=== PATIENT | male | born 1955 | race Caucasian/White ===

== ENCOUNTER 2020-02-07 10:23 | Outpatient (NON) | payer MEDICARE, OTHER, SELFPAY ==
[2020-02-07 21:25] LABS: SARS-CoV-2 RNA PCR Negative
== END 2020-02-07 10:24 ==
PROVIDERS: Visit Provider Registered Nurse
DX: Z20.828 Contact with and (suspected) exposure to other viral communicable diseases (principal)
CPT/HCPCS: 87635; C9803; U0003

== ENCOUNTER 2023-09-30 14:14 | Outpatient (CLI) | payer MEDICARE, OTHER, SELFPAY ==
[2023-09-30 14:32] LABS: Basophils Absolute Auto 0.1 K/mm3 (0.0-0.1); Basophils Percent Auto 0.7 % (0.2-1.2); Eosinophils Absolute Auto 0.5 K/mm3 (0-0.3); Eosinophils Percent Auto 6.8 % (0-4.4); Hematocrit 52.1 % (42.0-52.0); Hemoglobin 18.1 g/dL (14.0-18.0); Immature Granulocyte Absolute 0.01 K/mm3 (0.00-0.031); Immature Granulocyte Percent A 0.1 % (0-0.5); Lymphocytes Absolute Auto 1.65 K/mm3 (0.9-3.2); Lymphocytes Percent Auto 23.8 % (18.3-44.2); Mean Corpuscular HGB Conc 34.7 g/dl (32-36); Mean Corpuscular Hemoglobin 32.6 pg (26-34); Mean Corpuscular Volume 93.7 fl (80-100); Mean Platelet Volume 9.6 fl (7.4-10.4); Monocytes Absolute Auto 0.7 K/mm3 (0.1-0.6); Monocytes Percent Auto 10.2 % (2.6-8.5); Neutrophils Percent Auto 58.4 % (45.5-73.1); Platelet Count Result 163 k/mm3 (150-375); Red Blood Count 5.56 M/mm3 (4.6-6.20); Red Cell Distribution Width 12.4 % (11.5-14.5); White Blood Count 6.9 K/mm3 (4.5-10.0)
[2023-09-30 17:15] LABS: Alanine Aminotransferase 33 U/L (6-50); Albumin Level 4.9 g/dL (3.5-5.1); Alkaline Phosphatase 43 U/L (38-126); Anion Gap 12 mmol/L (4-12); Aspartate Amino Transferase 40 U/L (17-59); Blood Urea Nitrogen 24 mg/dL (9-20); Calcium 9.6 mg/dL (8.4-10.2); Carbon Dioxide 23 mmol/L (22-30); Chloride 104 mmol/L (98-107); Estimated Glomerular Filt Rate > 60; Glucose 156 mg/dL (65-110); Potassium 4.6 mmol/L (3.4-5.0); Sodium 139 mmol/L (137-145)
== END 2023-09-30 14:15 | disposition home or self-care (01) ==
LOC: ANHLAB 14:17
PROVIDERS: Nurse Practitioner Family; PCP Family Medicine; Visit Provider Internal Medicine Hematology & Oncology
DX: D75.1 Secondary polycythemia (principal)
CPT/HCPCS: 36415; 80053; 82668; 85025

== ENCOUNTER 2023-10-07 02:20 | Day surgery (SDC) | payer MEDICARE, OTHER, SELFPAY ==
[2023-09-24 10:50] VITALS: BMI 25.7
[2023-10-07 06:55] VITALS: BP 113/99; PULSE 69; RESP 20; TEMP 36.2; O2SAT 97
[2023-10-07] MEDS: LACTATED RINGERS 1,000 ML 150 ML IV CONT (07:06)
--- NOTE | 2023-10-07 07:50 | PM.IMHP ---
H&P: HPI History of Present Illness Date/Time: 10/07/23 07:50 Chief Complaint: screening for colorectal cancer Narrative: this is a 68-year-old man who presents for colonoscopy. Last colonoscopy was 5 or 6 years ago. He does not recall if polyps were removed. He denies any hematochezia or melena. He denies any family history of colon cancer. Review of Systems Review of Systems: All systems reviewed & are unremarkable except as noted in HPI and below Constitutional: Constitutional: Denies chills, Denies fever(s), Denies headache(s) and Denies weight loss Eyes: Eyes: Denies change in vision ENT: Denies dizziness, Denies headache(s), Denies neck mass and Denies throat swelling Cardiovascular: Cardiovascular: Denies chest pain, Denies lightheadedness and Denies dyspnea Respiratory: Respiratory: Denies cough, Denies dyspnea and Denies wheezing Gastrointestinal: Gastrointestinal: Denies abdominal pain, Denies change in bowel habits, Denies nausea and Denies vomiting Genitourinary: Genitourinary: Denies hematuria and Denies dysuria Musculoskeletal: Musculoskeletal: Reports as per HPI Integumentary/Breasts: Skin/Breast: Reports as per HPI Neurologic: Denies dizziness and Denies headache(s) Allergic/Immunologic: Allergic/Immunologic: Denies throat swelling and Denies wheezing PMFSH Past Medical History Medical History Asthma BMI 25.0-25.9,adult BMI 26.0-26.9,adult BMI 27.0-27.9,adult Skin cancer Surgical History Surgical History History of penile implant Family History Family History Father Sibling No problems noted. Mother No problems noted. Social History Social History Smoking packs per day: 1 Smoking cigarettes per day: 20.0 Years smoked: 20 Smoking pack-years: 20.00 Smoking status: Former smoker Tobacco type: cigarettes Second hand tobacco smoke exposure: Yes Alcohol intake: current Drinks per week: 12 Substance use: current Substance use type: opiates and painkillers Lack of Transportation: No Lack of Food: Never True Current Housing: I Have Housing Concerned About Future Housing: No Difficulty Paying Gas/Electric Bills: No Difficulty Paying for Meds: No Currently Unemployed: No Education: Associate Degree Difficulty w/ Childcare or Family Care: No Living arrangements: with family Occupation/Education: occupation 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 Gender identity (if verbalized by the patient): Male Spiritual care concerns: No Meds Home Medications and Allergies Home Medications Medication Instructions Recorded Confirmed Type hydrocortisone 2.5 % topical cream 1 applic RECTAL DAILY PRN 07/10/20 10/06/23 History with perineal applicator Hemorrhoids (Proctosol HC) isosorbide mononitrate 30 mg 30 mg PO DAILY #30 tabs 07/10/20 10/06/23 Rx tablet,extended release 24 hr rosuvastatin 40 mg tablet (Crestor) 40 mg PO DAILY #90 tabs 07/10/20 10/06/23 Rx tamsulosin 0.4 mg capsule (Flomax) 0.4 mg PO DAILY #30 caps 07/10/20 10/06/23 Rx metoprolol succinate 25 mg 25 mg PO DAILY 05/15/21 10/06/23 History tablet,extended release 24 hr triamcinolone acetonide 0.5 % 1 applic topical BID #15 grams 05/18/21 10/06/23 Rx topical cream aspirin 81 mg tablet,delayed 81 mg PO DAILY #90 tabs 01/15/22 10/06/23 Rx release (Adult Aspirin Regimen) docusate sodium 100 mg capsule 100 mg PO BID #180 caps 01/15/22 10/06/23 Rx hydrocodone 7.5 mg-acetaminophen 1 tablet PO BID PRN Pain 08/30/22 10/06/23 History 325 mg tablet ropinirole 1 mg tablet 1 mg PO QHS #90 tabs 01/07/23 10/06/23 Rx albuterol sulfate 90 mcg/actuation 1 puff inhalation Q4H PRN 03/10/23 10/06/23 Rx aerosol inhal
--- NOTE | 2023-10-07 07:54 | WPDANESEPPF ---
Anes - Initial Pre Proc Eval Procedure: Operation Date: 10/07/23 08:00 Proposed Procedures p Screening Colonoscopy - Marvin Santos DO Date/Time: 10/07/23 07:54 Surgeon: Marvin Santos DO Pre Op Diagnosis: Screening for malignant neoplasm of colon Patient Data Age: 68 Gender: M Height: 1.88 m Weight: 89.2 kg Last Vital Signs Temp 97.1 F L 10/07/23 06:55 Pulse 69 10/07/23 06:55 Resp 20 10/07/23 06:55 BP 113/99 H 10/07/23 06:55 Pulse Ox 97 10/07/23 06:55 O2 Del Method Room Air 10/07/23 06:55 Allergies Allergy/AdvReac Type Severity Reaction Status Date / Time No Known Allergies Allergy Verified 10/07/23 06:54 Home Medications Medication Instructions Recorded Confirmed Type hydrocortisone 2.5 % topical cream 1 applic RECTAL DAILY PRN 07/10/20 10/06/23 History with perineal applicator Hemorrhoids (Proctosol HC) isosorbide mononitrate 30 mg 30 mg PO DAILY #30 tabs 07/10/20 10/06/23 Rx tablet,extended release 24 hr rosuvastatin 40 mg tablet (Crestor) 40 mg PO DAILY #90 tabs 07/10/20 10/06/23 Rx tamsulosin 0.4 mg capsule (Flomax) 0.4 mg PO DAILY #30 caps 07/10/20 10/06/23 Rx metoprolol succinate 25 mg 25 mg PO DAILY 05/15/21 10/06/23 History tablet,extended release 24 hr triamcinolone acetonide 0.5 % 1 applic topical BID #15 grams 05/18/21 10/06/23 Rx topical cream aspirin 81 mg tablet,delayed 81 mg PO DAILY #90 tabs 01/15/22 10/06/23 Rx release (Adult Aspirin Regimen) docusate sodium 100 mg capsule 100 mg PO BID #180 caps 01/15/22 10/06/23 Rx hydrocodone 7.5 mg-acetaminophen 1 tablet PO BID PRN Pain 08/30/22 10/06/23 History 325 mg tablet ropinirole 1 mg tablet 1 mg PO QHS #90 tabs 01/07/23 10/06/23 Rx albuterol sulfate 90 mcg/actuation 1 puff inhalation Q4H PRN 03/10/23 10/06/23 Rx aerosol inhaler (ProAir HFA) shortness of breath or wheezing #8.5 grams felodipine 10 mg tablet,extended 10 mg PO DAILY #90 tabs 03/10/23 10/06/23 Rx release 24 hr gabapentin 600 mg tablet 1,200 mg PO TID #540 tabs 03/10/23 10/06/23 Rx potassium chloride 20 mEq 20 meq PO DAILY #90 tabs 03/10/23 10/06/23 Rx tablet,extended release ammonium lactate 12 % lotion 1 applic topical BID #225 grams 06/11/23 10/06/23 Rx empagliflozin 10 mg tablet 10 mg PO DAILY #90 tabs 06/11/23 10/06/23 Rx (Jardiance) lisinopril 5 mg tablet 5 mg PO DAILY #90 tabs 07/02/23 10/06/23 Rx triamterene 75 1 tablet PO DAILY #90 tabs 07/02/23 10/06/23 Rx mg-hydrochlorothiazide 50 mg tablet Patient hx anesthesia problems: none Family hx anesthesia problems: none Results Review: All pre-operative results and documents have been reviewed as part of the pre-operative evaluation. [facility] Past Medical History Medical History Asthma BMI 25.0-25.9,adult BMI 26.0-26.9,adult BMI 27.0-27.9,adult Skin cancer Surgical History Surgical History History of penile implant Family History Family History Father Sibling No problems noted. Mother No problems noted. Social History Social History Smoking packs per day: 1 Smoking cigarettes per day: 20.0 Years smoked: 20 Smoking pack-years: 20.00 Smoking status: Former smoker Tobacco type: cigarettes Second hand tobacco smoke exposure: Yes Alcohol intake: current Drinks per week: 12 Substance use: current Substance use type: opiates and painkillers Lack of Transportation: No Lack of Food: Never True Current Housing: I Have Housing Concerned About Future Housing: No Difficulty Paying Gas/Electric Bills: No Difficulty Paying for Meds: No Currently Unemployed: No Education: Associate Degree Difficulty w/ Childcare or Family Care: No Living arrangements: with fa
[2023-10-07 08:30] VITALS: BP 99/65; PULSE 61; RESP 12; O2SAT 96
[2023-10-07 08:45] VITALS: BP 109/80; PULSE 63; RESP 12; O2SAT 98
[2023-10-07 09:00] VITALS: BP 114/83; PULSE 65; RESP 12; O2SAT 99
== END 2023-10-07 09:07 | disposition home or self-care (01) ==
PROVIDERS: PCP Family Medicine; Visit Provider Surgery
PROC: 0DJD8ZZ Inspection of Lower Intestinal Tract, Via Natural or Artificial Opening Endoscopic (ICD-10-PCS; CPT 45378; principal; 2023-10-07 08:00)
DX: Z12.11 Encounter for screening for malignant neoplasm of colon (principal); D12.3 Benign neoplasm of transverse colon; D12.5 Benign neoplasm of sigmoid colon; K57.30 Diverticulosis of large intestine without perforation or abscess without bleeding; J45.909 Unspecified asthma, uncomplicated; Z79.51 Long term (current) use of inhaled steroids; Z79.82 Long term (current) use of aspirin; Z79.84 Long term (current) use of oral hypoglycemic drugs; Z87.891 Personal history of nicotine dependence
CPT/HCPCS: 45380; 88305; J2704; J7120

== ENCOUNTER 2024-04-06 12:24 | Outpatient (CLI) | payer MEDICARE, OTHER, SELFPAY ==
[2024-04-06 12:34] LABS: Basophils Percent Auto 0.3 % (0.2-1.2); Eosinophils Absolute Auto 0.3 K/mm3 (0-0.3); Hematocrit 50.3 % (42.0-52.0); Hemoglobin 17.4 g/dL (14.0-18.0); Immature Granulocyte Absolute 0.04 K/mm3 (0.00-0.031); Immature Granulocyte Percent A 0.5 % (0-0.5); Lymphocytes Absolute Auto 1.65 K/mm3 (0.9-3.2); Lymphocytes Percent Auto 19.2 % (18.3-44.2); Mean Corpuscular HGB Conc 34.6 g/dl (32-36); Mean Corpuscular Hemoglobin 32.8 pg (26-34); Mean Corpuscular Volume 94.7 fl (80-100); Mean Platelet Volume 9.3 fl (7.4-10.4); Monocytes Absolute Auto 0.8 K/mm3 (0.1-0.6); Monocytes Percent Auto 9.7 % (2.6-8.5); Neutrophils Absolute Auto 5.7 K/mm3 (1.3-6.7); Neutrophils Percent Auto 66.3 % (45.5-73.1); Platelet Count Result 186 k/mm3 (150-375); Red Blood Count 5.31 M/mm3 (4.6-6.20); Red Cell Distribution Width 12.3 % (11.5-14.5); White Blood Count 8.6 K/mm3 (4.5-10.0)
== END 2024-04-06 12:25 | disposition home or self-care (01) ==
LOC: ANHLAB 12:26
PROVIDERS: PCP Family Medicine; Visit Provider Internal Medicine Hematology & Oncology
DX: D75.1 Secondary polycythemia (principal)
CPT/HCPCS: 36415; 85025

== ENCOUNTER 2024-11-08 11:01 | Outpatient (CLI) | payer MEDICARE, OTHER, SELFPAY ==
--- OUTSIDE RECORDS SUMMARY | 2024-11-08 11:09 | XMS_ITS | Referral Summary ---
Author Organization [facility] Address [address] [place] [address] Care Team Providers Care Telephone Lines Repairer Name Role Phone David Mahoney MD Primary Care Provider Encounters Date Type Department Care Team Description 11/04/2024 Orders Only [facility] [address] [place] [address] Manuel Waite MD Benign prostatic hyperplasia with nocturia (Primary Dx) 11/04/2024 Telephone [facility] [address] [place] [phone] Prerna Quezada 09/07/2024 2:18 PM CDT - 09/07/2024 11:59 PM CDT Hospital Encounter [facility] at the [facility] [address] [place] [phone] Juan Luis Abel MD Lumbar radiculopathy (Primary Dx) Discharge Disposition: Discharge to home or self care 08/16/2024 11:58 AM CDT - 08/16/2024 11:59 PM CDT Hospital Encounter [facility] at the [facility] [address] [place] [phone] Bon Domingo NP Chronic bilateral low back pain with bilateral sciatica (Primary Dx); Status post insertion of spinal cord stimulator; Chronic use of opiate for therapeutic purpose Discharge Disposition: Discharge to home or self care from Last 3 Months Allergies No known active allergies Medications felodipine (PLENDIL) 10 mg 24 hr tabletIndicatio ns:hypertension Take 1 tablet (10 mg total) by mouth nightly 7 Active lisinopril (PRINIVIL,ZESTR IL) 5 mg tabletIndicatio ns:hypertension Take 1 tablet (5 mg total) by mouth every morning Active rOPINIRole (REQUIP) 1 mg tabletIndicatio ns:Restless Legs Syndrome Take 1 tablet (1 mg total) by mouth nightly Active aspirin 81 mg tabletIndicatio ns:prevention of thrombosis Take 1 tablet (81 mg total) by mouth every morning 7 Active albuterol HFA (PROVENTIL HFA,VENTOLIN HFA,PROAIR HFA) 90 mcg/actuation inhalerIndicati ons:Bronchospas m Prevention Inhale 2 puffs every 4 (four) hours as needed for wheezing or shortness of breath Active potassium chloride ER (KLOR-CON) 20 mEq CR tabletIndicatio ns:supplement Take 1 tablet (20 mEq total) by mouth every morning Active triamterene-hyd roCHLOROthiazid e (MAXZIDE,DYAZID E) 75-50 mg per tabletIndicatio ns:hypertension Take 1 tablet by mouth every morning 9 Active docusate sodium (COLACE) 100 mg capsuleIndicati ons:constipatio n Take 1 capsule (100 mg total) by mouth 2 (two) times a day 0 Active ammonium lactate (LAC-HYDRIN) 12 % lotionIndicatio ns:Dry Skin Apply topically daily as needed for dry skin or irritation 0 Active hydrocortisone (ANUSOL-HC) 2.5 % rectal cream Insert into the rectum 0 Active naloxone (NARCAN) 4 mg/actuation spray,non-aeros olIndications:O piate-Induced Respiratory Depression Administer 1 spray into affected nostril(s) as needed for opioid reversal May repeat every 2 to 3 minutes PRN. 1 each 2 Active triamcinolone (KENALOG) 0.5 % cream Apply topically 3 Active empagliflozin (Jardiance) 10 mg tabletIndicatio ns:type 2 diabetes mellitus Take 1 tablet (10 mg total) by mouth every morning 3 Active icosapent ethyL (VASCEPA) 1 gram capsule Take 2 capsules (2 g total) by mouth 2 (two) times a day 360 capsule 3 4 12/21/19 25 Active metoprolol XL (TOPROL-XL) 25 mg extended release tablet Take 1 tablet (25 mg total) by mouth daily 90 tablet 3 4 Active rosuvastatin (CRESTOR) 40 mg tablet Take 1 tablet (40 mg total) by mouth nightly 90 tablet 3 5 Active isosorbide mononitrate ER (IMDUR) 30 mg 24 hr tablet Take 1 tablet (30 mg total) by mouth daily 90 tablet 3 5 Active omega-3 fatty acids-fish oil 300-1,000 mg capsuleIndicati ons:hypertrigly ceridemia Take 1 capsule (1 g total) by mouth 2 (two) times a day Active multivitamin tabletIndicatio ns:Vitamin Deficiency Prevention Take 1 tablet by mouth every morning Active tamsulosin (FLOMAX) 0.4 mg extended release capsule Take 1 capsule (0.4 mg total) by mouth Active gabapentin (NEURONTIN) 600 mg tablet Take 1.5 tablets (900 mg total) by mouth 2 (two) times a day 270 tablet 3 5 Active HYDROcodone-demond taminophen (NORCO) 7.5-325 mg per tabletIndicatio ns:Pain Take 1 tablet by mouth every 8 (eight) hours as needed for pain 90 tablet 5 Active HYDROcodone-demond taminophen (NORCO) 7.5-325 mg per tabletIndicatio ns:Pain Take 1 tablet by mouth every 8 (eight) hours as needed for pain 90 tablet 5 10/22/19 25 Discontin ued(Reord er) Active Problems Problem Noted Date Diagnosed Date Allergic rhinitis 11/11/2023 Ankle pain 11/11/2023 Astigmatism 11/11/2023 Cerumen impaction 11/11/2023 Cervicalgia 11/11/2023 Corneal guttata 11/11/2023 Heart block 11/11/2023 Diabetes mellitus 11/11/2023 Impaired fasting glucose 11/11/2023 Male erectile disorder 11/11/2023 Overview (11/11/2023): formulary request for approval for levitra 10mg submitted Mass of skin 11/11/2023 Neoplasm of uncertain behavior of skin Nicotine dependence 11/11/2023 Overview (11/11/2023): Patient was instructed to stop using tobacco abuse Patient was counseled on the effects of Tobacco use. Recommendation of self referral to [facility] was discussed with patient. recommend patient call Nuclear senile cataract 11/11/2023 Other seborrheic keratosis 11/11/2023 Phobia 11/11/2023 Prediabetes 11/11/2023 Overview (11/11/2023): recheck fasting in 3-6 months Presbyopia 11/11/2023 Sensorineural hearing loss 11/11/2023 Overview (11/11/2023): TMs not obscured yet by wax, patient reports he gets ears cleaned out here annually Subcutaneous nodule 11/11/2023 Undiagnosed cardiac murmurs 11/11/2023 Xerosis cutis 11/11/2023 Coronary artery disease invo lving tanana coronary artery of tanana heart without angina pectoris 03/24/2023 Aneurysm of ascending aorta without rupture 02/27 Peripheral arterial disease 03/24/2023 Right bundle branch block 03/24/2023 Essential hypertension 03/24/2023 Left ventricular hypertrophy 03/24/2023 Mixed hyperlipidemia 03/24/2023 Benign prostatic hyperplasia with nocturia 09/05 Assessment & Plan (09/05/2022 2:30 PM CDT): -Last 3-4 months he has noticed having to double void and increased nocturia. Double voiding typically only happens at night and only voids a small amount. Daytime symptoms are okay and does not have this issue. -Stream is pretty good, no hesitancy, no straining, no urgency. -He does report he drinks fluids up until bedtime and has 4-5 beers a night. -Explained to patient alcohol can have diuretic effect and likely contributing to his nocturia and irritative to bladder causing needing to double void. PLAN: -Avoid all fluids 2-3 hours prior to bed. -Advised abstaining from alcohol all together if possible. Or reduction in amount of beer and drinking them earlier in the evening. -Continue tamsulosin. -Follow up in 1 year or sooner if issues arise. Prostate cancer screening 09/05/2022 Assessment & Plan (09/05/2022 2:31 PM CDT): -Due for PSA. Order placed. Chronic use of opiate for therapeutic purpose Other hemorrhoids 02/02/2020 Hypokalemia 08/03/2019 Restless leg syndrome, controlled 08/03/2019 Chronic bilateral low back pain with bilateral s ciatica 11/16/2017 Myalgia 11/16/2017 Other chronic pain 11/16/2017 Slowing of urinary stream 10/22/2016 Spinal stenosis of lumbar region 03/20/2015 Degeneration of intervertebral disc of lumbosacr al region 01/21/2013 Arthropathy of lumbar facet joint 10/13/2012 Sciatica 10/13/2012 Induratio penis plastica 08/19/2007 Overview (11/11/2023): new onset Peyronie's symptoms, refer to urology Social History Tobacco Use Types Packs/Day Years Used Date Smoking Tobacco: Former Cigarettes 2017 Smokeless Tobacco: Never Tobacco Cessation:Counseling Given: Not Answered Alcohol Use Standard Drinks/Week Comments Yes 2 (1 standard drink = 0.6 oz pur e alcohol) every other day AUDIT-C Answer Date Recorded Q1: How often do you have a drink containing alcohol? 4 or more times a week 09/07/2024 Q2: How many drinks containi ng alcohol do you have on a typical day when you are drinking? 1 or 2 Q3: How often do you have si x or more drinks on one occasion? Never 09/07/2024 Hunger Vital Sign Answer Date Recorded Within the past 12 months, y ou worried that your food would run out before you got the money to buy more. Never true 08/27/19 23 Within the past 12 months, t he food you bought just didn't last and you didn't have money to get more. Never true 08/26/2022 Personal Safety Answer Date Recorded Have you ever been in or are you currently in a harmful physical or emotional relationship or is someone making you feel afraid or unsafe? Denies 08/06/2024 Sex and Gender Information Value Date Recorded Sex Assigned at Not on file Legal Sex Male 11:34 PM COSTUMER Gender Identity Not on file Sexual Orientation Not on file Last Filed Vital Signs Vital Sign Reading Time Taken Comments Blood Pressure 124/64 09/07/2024 2:49 PM CDT Pulse 82 09/07/2024 2:49 PM CDT Temperature 36.6 C (97.8 F) 09/07/2024 2:49 PM CDT Respiratory Rate 16 09/07/2024 2:49 PM CDT Oxygen Saturation 93% 09/07/2024 2:49 PM CDT Inhaled Oxygen Concentration - - Weight 86.6 kg (191 lb) 09/07/2024 2:49 PM CDT Height 188 cm (6' 2) 09/07/2024 2:49 PM CDT Body Mass Index 24.52 09/07/2024 2:49 PM CDT Plan of Treatment Not on file Goals Goal Patient Goal Type Associated Problems Recent Progress Patient-Stated? Author CCM Chronic Pain Care Plan Chronic Care Management Worsening( 2:54 PM CDT) No Yamilka Singh Note: Problem: Chronic Pain Goals: 1. Minimize further functional decline 2. Maximize quality of life 3. Control pain Strategies: - Activity/exercise program recommendation - Conservative stepwise pain medicine strategy with multi-disciplinary approach - Recommend healthy lifestyle strategies and compensatory methods as needed Medical Devices Implanted Type Area Software Test Technician Device Identifier Shelf Expiration Date Model / Serial / Lot Spinal Cord Stimulator Right: Buttocks Medtronic Penile Penis [employer]onic [employer] Generator Pulse Inceptiv Sys Stm Electrcl Analges Implant [id number] - [id number] - [id number] Implanted:Qty: 1 on 08/06/2024 by Juan Luis Abel MD at [facility] N/A: Back Med[employer] Inc 05/11/2025 [id number] / [id number] / Procedures Procedure Name Priority Date/Time Associated Diagnosis Comments COMPREHENSIVE METABOLIC PANEL Routine 06/29/2024 7:45 AM COSTUMER LIPID PANEL Routine 06/29/2024 7:45 AM COSTUMER PSA DIAGNOSTIC Routine 11/06/2023 1:17 PM CDT Benign prostatic hyperplasia with nocturia Prostate cancer screening from Last 3 Months or Most Recently Relevant to Health Maintenance Results * (ABNORMAL) Lipid panel (06/29/2024 7:45 AM COSTUMER) Cholesterol 138 100 - 199 mg/dL [facility] - 01 Triglycerides 286(H) 0 - 149 mg/dL [facility] - 01 HDL Cholesterol 46 >39 mg/dL [facility] - 01 VLDL 44(H) 5 - 40 mg/dL [facility] - 01 LDL, calculated 48 0 - 99 mg/dL [facility] - 01 06/29/2024 7:45 AM COSTUMER 06/29/2024 Narrative [facility] - 06/30/2024 7:37 AM COSTUMER Performed at: 01 - [address] [id number] Stretcher Leveler Operator: Zuhair Barlow PhD, Phone: [phone] us Mario Kowalski MD LAB BLOOD ORDERABLES Final Result [facility] - 01 * (ABNORMAL) Comprehensive metabolic panel (06/29/2024 7:45 AM COSTUMER) Glucose 104(H) 70 - 99 mg/dL [facility] - 01 BUN 19 8 - 27 mg/dL [facility] - 01 Creatinine, Serum 0.98 0.76 - 1.27 mg/dL [facility] - 01 eGFR 83 >59 mL/min/1.7 3 [facility] - 01 BUN/creat ratio 19 10 - 24 [facility] - 01 Sodium 142 134 - 144 mmol/L [facility] - 01 Potassium, sr 3.7 3.5 - 5.2 mmol/L [facility] - 01 Chloride 101 96 - 106 mmol/L [facility] - 01 CO2 23 20 - 29 mmol/L [facility] - 01 Calcium 9.6 8.6 - 10.2 mg/dL [facility] - 01 Protein, sr 6.9 6.0 - 8.5 g/dL [facility] - 01 Albumin 4.5 3.9 - 4.9 g/dL [facility] - 01 Globulin, Total 2.4 1.5 - 4.5 g/dL [facility] - 01 Bilirubin, Total 0.7 0.0 - 1.2 mg/dL [facility] - 01 Alk phos 65 44 - 121 IU/L [facility] - 01 AST 21 0 - 40 IU/L [facility] - 01 ALT 28 0 - 44 IU/L [facility] - 01 06/29/2024 7:45 AM COSTUMER 06/29/2024 Narrative [facility] - 06/30/2024 7:37 AM COSTUMER Performed at: - [address] [id number] Stretcher Leveler Operator: Zuhair Barlow PhD, Phone: [phone] us Mario Kowalski MD LAB BLOOD ORDERABLES Final Result [facility] * PSA diagnostic (11/06/2023 1:17 PM CDT) PSA-Total 0.93 <=5.40 ng/mL Comment: Interpretive Data AGE SEX REFERENCE INTERVAL 0 minutes-150 years Female None 0 minutes-49 years Male None 50-59 years Male 0-3.90 60-69 years Male 0-5.40 70-79 years Male 0-6.20 80-150 years Male 0-6.20 The Daniel PSA Total assay procedure was used. Results from different manufacturers or methods may not be comparable. Serial testing should be performed using the same method. Current interpretive data last revised 21. Testing performed by: [facility], [address] [place] [address]., [id number] Blood 11/06/2023 1:17 PM CDT 11/06/2023 1:50 PM CDT us Manuel Waite MD LAB BLOOD ORDERABLES Final Resul t [facility] [id number] [facility] [place] [address] from Last 3 Months or Most Recently Relevant to Health Maintenance Insurance MEDICARE [facility] MEDICARE FOR LIFE MEDICARE [facility] Address: [address] [address] [place] [address] FOR LIFE Advance Directives For more information, please contact: [phone] Documents on File Type Date Recorded 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
--- OUTSIDE RECORDS SUMMARY | 2024-11-08 11:09 | XMS_ITS | Clinical Summary ---
Author Organization [facility] Address [address] [place] [address] Care Team Providers Care Organizational Consultant Name Role Phone David Mahoney MD Primary Care Provider + [phone] Allergies No known active allergies Medications felodipine [...] Tobacco use. Recommendation of self referral to [facility] was discussed with patient. recommend patient call [...] cutis 11/11/2023 Coronary artery disease invo lving pechanga coronary artery of pechanga heart without angina pectoris 03/24/2023 Aneurysm of [...] new onset Peyronie's symptoms, refer to urology Encounters Date Type Department Care Team Description 11/04/2024 Orders Only [facility] Surgery [address] [place] [address] Manuel Waite MD Benign prostatic hyperplasia with nocturia (Primary Dx) 11/04/2024 Telephone [facility] Surgery [address] [place] [address] Prerna Quezada 09/07/2024 2:18 PM CDT - 09/07/2024 11:59 PM CDT Hospital Encounter [facility] [address] [place] [address] Juan Luis Abel MD Lumbar radiculopathy (Primary Dx) Discharge Disposition: Discharge to home or self care 08/16/2024 11:58 AM CDT - 08/16/2024 11:59 PM CDT Hospital Encounter [facility] [place] [address] Bon Domingo NP Chronic bilateral low back pain with bilateral sciatica (Primary Dx); Status post insertion of spinal cord stimulator; Chronic use of opiate for therapeutic purpose Discharge Disposition: Discharge to home or self care from Last 3 Months Surgical History Surgery Date Site/Laterality Comments EPIDURAL INJECTION LUMBOSACRAL 07/21/2013 N/A [place] NJX AA&/STRD TFRML EPI LUMBAR/SACRAL 1 LEVEL Corticosteroid Inj Transforaminal Approach Lumbar W/ Fluoroscopic Guidance - (Added by TW Conv) NECK SURGERY PENILE PROSTHESIS IMPLANT CATARACT EXTRACTION 04/28/2020 - 04/27/2021 Bilateral COLONOSCOPY Medical History Medical History Date Comments Chronic pain Hypertension Low back pain Hyperlipidemia Coronary artery disease PAD (peripheral artery disease) Aortic aneurysm Sleep apnea Asthma Family History Medical History Relation Name Comments Anesthesia problems Neg Hx Social History Tobacco Use Types Packs/Day Years [...] on file 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 Gender Identity Not on file Sexual Orientation Not on file Obstetrics History Last Filed Vital Signs Vital Sign Reading [...] 09/07/2024 2:49 PM CDT Plan of Treatment Health Maintenance Due Date Last Done Comments Albumin Creatinine Ratio, Urine 1954 Colon Cancer Screening-Colonoscopy 1954 Depression Screening 1954 Hemoglobin A1C 1954 Hepatitis C Screening 1954 Dilated Eye Exam 1954 Foot Exam 1954 Hepatitis B Screening 1972 Lung Cancer Screening 2004 Abdominal Aortic Aneurysm (A AA) Screen 08/25/2019 Well Visit 65+ 08/25/2019 Pneumococcal vaccine 65+ (2 of 2 - PCV) 09/06/2020 09/07/2019 Covid-19 Vaccine (7 - 4-2 5 season) 2024 06/28/2024, 12/28/2023, 07/28/2021, Additional history exists Influenza Vaccine (#1) 2024 , 01/09/2023, 12/16/2020, Additional history exists Lipid Panel 06/29/2025 06/29/2024, 11/26, 02/10/2020, Additional history exists eGFR 06/29/2025 06/29/2024, 12/08/2023 Fall Risk Assessment 08/06/2025 08/06/2024 DTaP/Tdap/Td Vaccine (3 - Td or Tdap) 01/13/2033 01/13/2023, 12/29/2012, 09/14/2004 Zoster Vaccine Completed 11/09/2018, 07/27, 12/23/2013 Prostate Cancer Screening-PSA Discontinued , 09/05/2022, 09/04/2021, Additional history exists Goals Goal Patient Goal Type Associated Problems Recent Progress Patient-Stated? Author CCM Chronic Pain Care Plan Chronic Care Management Worsening( 2:54 PM CDT) Yamilka Kelley Note: Problem: Chronic Pain Goals: 1. Minimize further functional decline 2. Maximize quality of life 3. Control pain Strategies: - Activity/exercise program recommendation - Conservative stepwise pain medicine strategy with multi-disciplinary approach - Recommend healthy lifestyle strategies and compensatory methods as needed Medical Devices Implanted Type Area Nurse Orthopedic Device Identifier Shelf Expiration Date Model / Serial / Lot Spinal Cord Stimulator Right: Buttocks Medtronic Penile Penis [employer] Generator Pulse Inceptiv Sys Stm Electrcl Analges Implant [id number] - [id number] - [id number] Implanted:Qty: 1 on 08/06/2024 by Juan Luis Abel MD at [facility] N/A: Back [employer] 05/11/2025 [id number] / [id number] / Procedures Procedure Name Priority Date/Time Associated Diagnosis Comments COMPREHENSIVE METABOLIC PANEL Routine 06/29/2024 7:45 AM [employer]DING PL[employer]NER LIPID PANEL Routine 06/29/2024 7:45 AM WEDDING PL[employer]NER PSA DIAGNOSTIC Routine 11/06/2023 1:17 PM CDT Benign prostatic hyperplasia with nocturia Prostate cancer screening from Last 3 Months or Most Recently Relevant to Health Maintenance Results * (ABNORMAL) Lipid panel (06/29/2024 7:45 AM WEDDING PLANNER) Cholesterol 138 100 - 199 mg/dL [facility] - 01 Triglycerides 286(H) 0 - 149 mg/dL [facility] - 01 HDL Cholesterol 46 >39 mg/dL [facility] - 01 VLDL 44(H) 5 - 40 mg/dL [facility] - 01 LDL, calculated 48 0 - 99 mg/dL [facility] - 01 06/29/2024 7:45 AM WEDDING PLANNER 06/29/2024 Narrative [facility] - 06/30/2024 7:37 AM WEDDING PLANNER Performed at: - [facility] [id number] Chief Order Dispatcher: Zuhair Barlow PhD, Phone: [phone] Mario Kowalski MD LAB BLOOD ORDERABLES Final Result [facility] - 01 * (ABNORMAL) Comprehensive metabolic panel (06/29/2024 7:45 AM WEDDING PL[employer]NER) Glucose 104(H) 70 - 99 mg/dL [facility] [...] IU/L [facility] - 01 06/29/2024 7:45 AM WEDDING PLANNER 06/29/2024 Narrative [facility] - 06/30/2024 7:37 AM WEDDING PL[employer]NER Performed at: [facility] [id number] Chief Order Dispatcher: Zuhair Barlow PhD, Phone: [phone] us Mario Kowalski MD LAB BLOOD ORDERABLES Final Result Performing Organization Address [facility] Co de Phone Number [facility] - * PSA diagnostic (11/06/2023 1:17 PM CDT) [...] Testing performed by: [facility], [address] [place] [address]., [id number] Blood 11/06/2023 1:17 PM CDT 11/06/2023 1:50 PM CDT us Manuel Waite MD LAB BLOOD ORDERABLES Final Resul t Performing Organization Address City/[facility]/ZIP Co de Phone Number [facility] [address] [facility] [place] [address] from Last 3 Months or Most Recently Relevant to Health Maintenance Insurance MEDICARE [facility] MEDICARE [employer] [facility] [address] MEDICARE FOR LIFE Advance Directives For more information, please contact: [phone] Documents on File Type Date Recorded Patient Child And Family Therapist Expl anation ADVANCE DIRECTIVE 05/08/2018 10:29 AM Care Teams Organizational Consultant Relationship Specialty Start Date End Date David Mahoney MD PCP - General Family Medicine 09/04/20
--- OUTSIDE RECORDS SUMMARY | 2024-11-08 11:09 | XMS_ITS | Encounter Summary ---
Author Organization [facility] Address [address] [place] [address] Care Team Providers Care Veneer Matcher Name Role Phone Stefano Turner MD Primary Care Provider [phone] Preeti Gill Primary Care Provider + David Mahoney MD Primary Care Provider [phone] Encounter Details Date Type Department Care Team (Late st Contact Info) Description 10/27/2019 Telephone 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 Author ELLI Chronic Pain Care Plan Chronic Care Management Worsening( 2:54 PM CDT) No Yamilka Singh Note: Problem: Chronic Pain Goals: 1. Minimize further functional decline 2. Maximize quality of life 3. Control pain Strategies: - Activity/exercise program recommendation - Conservative stepwise pain medicine strategy with multi-disciplinary approach - Recommend healthy lifestyle strategies and compensatory methods as needed documented as of this encounter Visit Diagnoses Not on filedocumented in this encounter Care Teams Veneer Matcher Relationship Specialty Start Date End Date Stefano Turner MD PCP - General Internal Medicine 01/05/18 12/07/19 Preeti Gill PA [address] [place] [id number] PCP - General 12/08/19 09/03/20 David Mahoney MD [address] [place] [id number] PCP - General Family Medicine 09/04/20 documented as of this encounter
--- OUTSIDE RECORDS SUMMARY | 2024-11-08 11:10 | XMS_ITS | Encounter Summary ---
Author Organization [facility] Healthcare Address [address] [place] [address] Care Team Providers Care Real Estate Operations Manager Name Role Phone David Mahoney MD Primary Care Provider Encounter Details Date Type Department Care Team (Late st Contact Info) Description 08/21/2021 Telephone [facility] [place] [facility] [address] [facility] [address] [place] [address] Juan Luis Abel MD [address] [place] [address] Social History Tobacco Use Types Packs/Day Years Used Date Smoking Tobacco: Former Smokeless Tobacco: Never Alcohol Use Standard Drinks/Week Comments Yes 2 (1 standard drink = 0.6 oz pur e alcohol) every other day AUDIT-C Answer Date Recorded Q1: How often do you have a drink containing alc ohol? Never 08/22/2021 Q2: How many drinks containi ng alcohol do you have on a typical day when you are drinking? 3 or 4 08/22/2021 Q3: How often do you have six or more drinks on one occasion? 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
--- OUTSIDE RECORDS SUMMARY | 2024-11-08 11:10 | XMS_ITS | Continuity of Care Document ---
Author Name [facility] Organization [facility] Care Team Providers Care Public Health Doctor Name Role Phone [facility] Unavailable Unavailable Problems Combined list of problems from 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 It does not include entries that were removed or entered in error. 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 DoD Outpatient Physician Consultation Active Condition DoD lump in / on the skin Active Condition DoD Preventive Medicine Estab Patient Checkup Adult 40-64 Inactive Condition DoD CATARACT SENILE NUCLEAR Active Condition DoD DIABETES MELLITUS Active Condition DoD HEART BLOCK Active Condition DoD ORTHOSTATIC HYPOTENSION Inactive Condition DoD Patient Education - Dietary Active Condition DoD PRESBYOPIA Active Condition DoD ASTIGMATISM Active Condition DoD REFRACTIVE ERROR - MYOPIA Active Condition DoD ALLERGIC RHINITIS Active Condition DoD Nodules - Subcutaneous Active Condition DoD LUMBAGO Active Condition DoD HYPOKALEMIA Active Condition DoD IMPAIRED FASTING GLUCOSE Active Condition DoD XEROSIS CUTIS Active Condition DoD RENAL DISORDERS Inactive Condition DoD Vaccines Prophylactic Need Against Influenza Inactive Condition DoD visit for: screening exam cardiovascular disorders Active Condition DoD NICOTINE DEPENDENCE Active Condition Patient was instructed to stop using tobacco abusePatient was counseled on the effects of Tobacco use. Recommendation of self referral to [facility] was discussed with patient.recommend patient call DoD CORONARY ARTERY DISEASE Active Condition pateint with ek g consistant with old infart will repeat ekg and labs patient sent to cardiology for initial consultation. 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 of Visits: 12 Referral Authorized Until:22 Feb 2008 Reason for Consult: Priority: ROUTINE Pain Management Consult: 52 y/o male with hx of lumbago with degenerative disc disease. Pt is being followed by Dr. David SIU [id number] @ [facility], [place] [phone] [address] [place] [address] . Pt has a f/u appt on Mar 05 @ 1100. Please authorize for contunuity of care for one year x 12 visits. Thanks. Provisional Diagnosis: HCDP: 117 - PRIME FAMILY COVER Lumbago w/degen disc disease Reviewed Date/Time: 24 Dec 2007@1301 Appoint Status: DEFER TO NETWORK Appointment Review Comment: Reviewer: PURVI HAY cap/ref//cont of care/ DoD HYPERLIPIDEMIA Active Condition Cardi ac Risk Factors =Htn, Age, Tob, LDL GOAL less than 100, HDL GOAL more than 40TG GOAL less 150 \patient to f/u after labs DoD HYPERGLYCEMIA Active Condition border line high fasting glucose, recheck in 4 weeks, also get glycohemoglobin DoD visit for: administrative purpose Inactive Condition DoD HYPERTENSION (SYSTEMIC) Active Condition Patient advised to complete 7-day BP check at home/work and return if greater than 140/90 on 2 or more readings.If becomes lightheaded with position changes, patient advised to monitor BP and return to clinic with readings.If experience chest pain report to ER immediately.Sho ruelas was given instruction on how to properly test for blood pressure control and agreed to f/u as needed. DoD visit for: issue repeat prescription for medication Inactive Condition [facility] Laboratory Studies Inactive Condition Do D visit for: issue repeat prescription Inactive Condition DoD visit for: laboratory Inactive Condition DoD lightheadedness Inactive Condition pt t o monitor BP during episodes DoD Vaccines Prophylactic Need Against Td Inactive Condition DoD Laboratory Studies Inactive Condition Labs order ed DoD Medications Combined list of outpatient medications from 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Medications provided include 1) outpatient medications from the last 15 months, and 2) patient-reported medications. Medication Details Route Status Patient Instructions Prescription Expires Prescription Number Last Dispense Date Ordering Provider Order Date Order Qty Source albuterol 90 mcg inhaler [8.5g] See Instruct ions, # 8.5 g, 2 total refill(s ), Hard Stop Complet ed 03/09/2024 3 2023 8.5 Ambulat ory Pharmac y albuterol 90 mcg inhaler [8.5g] See Instruct ions, # 8.5 g, 2 total refill(s ), Soft Stop Ordered 5 2024 8.5 Ambulat ory Pharmac y ammonium lactate 12% lotion [225g] See Instruct ions, # 225 g, 2 total refill(s ), Hard Stop Complet ed 06/10/2024 4 2024 225.0 Ambulat ory Pharmac y empaglifloz in 10 mg tablet = 1 tab(s), Oral, Daily, # 90 EA, 3 total refill(s ), Hard Stop Oral (given by mouth) Ordered 04/26/2025 5 2024 90.0 Ambulat ory Pharmac y felodipine ER 10 mg/24 hour tablet 10 mg, Oral, Daily, # 90 EA, 2 total refill(s ), Hard Stop Oral (given by mouth) Discont inued 07/06/2024 4 2024 90.0 Ambulat ory Pharmac y felodipine ER 10 mg/24 hour tablet 10 mg, Oral, Daily, # 90 EA, 2 total refill(s ), Hard Stop Oral (given by mouth) Discont inued 11/21/2023 4 2023 90.0 Ambulat ory Pharmac y felodipine ER 10 mg/24 hour tablet See Instruct ions, # 90 EA, 1 total refill(s ), Acute Complet ed 06/06/2023 3 2023 90.0 Ambulat ory Pharmac y felodipine ER 10 mg/24 hour tablet = 1 tab(s), Oral, Daily, # 90 EA, 2 total refill(s ), Soft Stop Oral (given by mouth) Ordered 5 2024 90.0 Ambulat ory Pharmac y FLOMAX (BRAND) 0.4 MG ORAL CAP May cause drowsine ss.Be careful if taking OTCs.Michael e or use exactly as directed .Swallow whole. 09/28/2024 [id number] 4 2023 90 [employer] Humberto TRONCOSO ([facility] gabapentin 600 mg oral tablet TAKE ONE TABLET TWICE DAILY, # 180 EA, 1 total refill(s ), Acute Discont inued 07/01/2023 3 2023 180.0 Ambulat ory Pharmac y gabapentin 600 mg tablet See Instruct ions, # 270 EA, 3 total refill(s ), Soft Stop Ordered 5 2024 270.0 Ambulat ory Pharmac y gabapentin 600 mg tablet See Instruct ions, # 270 EA, 0 total refill(s ), Hard Stop Complet ed 06/30/2024 4 2024 270.0 Ambulat ory Pharmac y gabapentin 600 mg tablet See Instruct ions, # 270 EA, 3 total refill(s ), Hard Stop Discont inued 09/13/2024 5 2024 270.0 Ambulat ory Pharmac y gabapentin 600 mg tablet See Instruct ions, 0, # 270 EA, 0 total refill(s ), Hard Stop Discont inued 07/01/2023 3 2023 270.0 Ambulat ory Pharmac y hydrochloro thiazide-tr iamterene 50 mg-75 mg tablet = 1 tab(s), Oral, Daily, # 90 EA, 2 total refill(s ), Hard Stop Oral (given by mouth) Discont inued 02/10/2024 4 2023 90.0 Ambulat ory Pharmac y hydrochloro thiazide-tr iamterene 50 mg-75 mg tablet = 1 tab(s), Oral, Daily, # 90 EA, 2 total refill(s ), Hard Stop Oral (given by mouth) Discont inued 10/01/2024 5 2024 90.0 Ambulat ory Pharmac y hydrochloro thiazide-tr iamterene 50 mg-75 mg tablet See Instruct ions, # 90 EA, 2 total refill(s ), Hard Stop Complet ed 10/22/2023 3 2023 90.0 Ambulat ory Pharmac y hydrochloro thiazide-tr iamterene 50 mg-75 mg tablet = 1 tab(s), Oral, Daily, # 90 EA, 2 total refill(s ), Soft Stop Oral (given by mouth) Ordered 5 2024 90.0 Ambulat ory Pharmac y HYDROCODONE -ACETAMINOP HEN (HYDROCODON E/ACETAMINO PHEN), 7.5-325MG, TABLET, ORAL, MALLINCKROD T PH, 500 ea. BOTTLE Active [id number] 4 2023 90 Pharmac y [employer] y HYDROcodone -acetaminop hen 7.5 mg-325 mg tablet = 1 tab(s), Oral, every 8 hr, # 90 EA, 0 total refill(s ), Hard Stop Oral (given by mouth) Complet ed 04/10/2024 4 2023 90.0 Ambulat ory Pharmac y isosorbide mononitrate ER 30 mg/24 hour tablet See Instruct ions, # 90 EA, 1 total refill(s ), Acute Complet ed 07/16/2023 3 2023 90.0 Ambulat ory Pharmac y isosorbide mononitrate ER 30 mg/24 hour tablet 30 mg, Oral, Daily, # 90 EA, 1 total refill(s ), Hard Stop Oral (given by mouth) Complet ed 01/02/2024 3 2023 90.0 Ambulat ory Pharmac y isosorbide mononitrate ER 30 mg/24 hour tablet 30 mg, Oral, Daily, # 90 EA, 3 total refill(s ), Hard Stop Oral (given by mouth) Complet ed 07/01/2024 4 2024 90.0 Ambulat ory Pharmac y isosorbide mononitrate ER 30 mg/24 hour tablet See Instruct ions, # 90 EA, 3 total refill(s ), Soft Stop Ordered 5 2024 90.0 Ambulat ory Pharmac y Jardiance 10 mg tablet 10 mg, Oral, Daily, # 90 EA, 3 total refill(s ), Hard Stop Oral (given by mouth) Discont inued 04/26/2024 4 2023 90.0 Ambulat ory Pharmac y Jardiance 10 mg tablet 10 mg, Oral, Daily, # 90 EA, 0 total refill(s ), Hard Stop Oral (given by mouth) Complet ed 03/09/2024 3 2023 90.0 Ambulat ory Pharmac y lisinopril 5 mg tablet 5 mg, See Instruct ions, Oral, Daily, # 90 EA, 2 total refill(s ), Hard Stop Oral (given by mouth) Complet ed 10/21/2023 3 2023 90.0 Ambulat ory Pharmac y lisinopril 5 mg tablet 5 mg, Oral, Daily, # 90 EA, 2 total refill(s ), Hard Stop Oral (given by mouth) Discont inued 02/10/2024 2023 90.0 Ambulat ory Pharmac y lisinopril 5 mg tablet = 1 tab(s), Oral, Daily, # 90 EA, 2 total refill(s ), Hard Stop Oral (given by mouth) Discont inued 10/01/2024 5 2024 90.0 Ambulat ory Pharmac y lisinopril 5 mg tablet = 1 tab(s), Oral, Daily, # 90 EA, 2 total refill(s ), Soft Stop Oral (given by mouth) Ordered 5 2024 90.0 Ambulat ory Pharmac y medication organizer 7day/4 slot See Instruct ions, # 1 EA, 0 total refill(s ), Soft Stop Ordered 2022 1.0 Ambulat ory Pharmac y metoprolol succinate ER 25 mg/24 hour tablet See Instruct ions, # 90 EA, 1 total refill(s ), Acute Complet ed 07/16/2023 3 2023 90.0 Ambulat ory Pharmac y metoprolol succinate ER 25 mg/24 hour tablet = 1 tab(s), Oral, Daily, # 90 EA, 3 total refill(s ), Hard Stop Oral (given by mouth) Ordered 04/23/2025 5 2024 90.0 Ambulat ory Pharmac y metoprolol succinate ER 25 mg/24 hour tablet 25 mg, Oral, Daily, # 90 EA, 1 total refill(s ), Hard Stop Oral (given by mouth) Complet ed 01/02/2024 3 2023 90.0 Ambulat ory Pharmac y metoprolol succinate ER 25 mg/24 hour tablet 25 mg, Oral, Daily, # 90 EA, 3 total refill(s ), Hard Stop Oral (given by mouth) Discont inued 04/26/2024 4 2023 90.0 Ambulat ory Pharmac y potassium chloride ER 20 mEq tablet (dispersibl e) See Instruct ions, # 90 EA, 1 total refill(s ), Acute Complet ed 06/06/2023 3 2023 90.0 Ambulat ory Pharmac y potassium chloride ER [EQV Klor-Con M20] 20 mEq tablet 20 mEq, Oral, Daily, # 90 EA, 2 total refill(s ), Hard Stop Oral (given by mouth) Discont inued 07/06/2024 4 2024 90.0 Ambulat ory Pharmac y potassium chloride ER [EQV Klor-Con M20] 20 mEq tablet See Instruct ions, # 90 EA, 2 total refill(s ), Hard Stop Discont inued 11/21/2023 4 2023 90.0 Ambulat ory Pharmac y potassium chloride ER [EQV Klor-Con M20] 20 mEq tablet (dispersibl e) = 1 tab(s), Oral, Daily, # 90 EA, 2 total refill(s ), Soft Stop Oral (given by mouth) Ordered 5 2024 90.0 Ambulat ory Pharmac y rOPINIRole 1 mg tablet 1 mg, Oral, Daily, # 90 EA, 2 total refill(s ), Hard Stop Oral (given by mouth) Discont inued 07/06/2024 4 2024 90.0 Ambulat ory Pharmac y rOPINIRole 1 mg tablet 1 mg, Oral, # 90 EA, 2 total refill(s ), Hard Stop Oral (given by mouth) Discont inued 11/24/2023 4 2023 90.0 Ambulat ory Pharmac y rOPINIRole 1 mg tablet = 1 tab(s), Oral, every day at bedtime, # 90 EA, 2 total refill(s ), Soft Stop Oral (given by mouth) Ordered 5 2024 90.0 Ambulat ory Pharmac y rosuvastati n 40 mg tablet 40 mg, Oral, Daily, # 90 EA, 2 total refill(s ), Hard Stop Oral (given by mouth) Discont inued 07/06/2024 4 2024 90.0 Ambulat ory Pharmac y rosuvastati n 40 mg tablet 40 mg, Oral, # 90 EA, 3 total refill(s ), Hard Stop Oral (given by mouth) Discont inued 11/21/2023 4 2023 90.0 Ambulat ory Pharmac y rosuvastati n 40 mg tablet See Instruct ions, # 90 EA, 3 total refill(s ), Soft Stop Ordered 5 2024 90.0 Ambulat ory Pharmac y rosuvastati n 40 mg tablet See dose instruct ions in comments , # 90 EA, 1 total refill(s ), Acute Complet ed 07/16/2023 3 2023 90.0 Ambulat ory Pharmac y tamsulosin 0.4 mg capsule See Instruct ions, # 90 EA, 3 total refill(s ), Acute Complet ed 09/04/2023 4 2023 90.0 Ambulat ory Pharmac y tamsulosin 0.4 mg capsule See Instruct ions, # 90 EA, 3 total refill(s ), Hard Stop Complet ed 09/28/2024 4 2024 90.0 Ambulat ory Pharmac y Vascepa 1 g capsule 2 g, Oral, BID, # 360 EA, 3 total refill(s ), Hard Stop Oral (given by mouth) Discont inued 12/30/2023 4 2023 360.0 Ambulat ory Pharmac y Allergies, Adverse Reactions, Alerts Combined list of allergies from 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 It does not include entries that were removed or entered in error. Substance Category Reaction Severity Reaction type Status Date Reported Comments Source NO OUTPUT FOR NCID [id number] Drug allergy (disorder) active 12/23/2007 [facility] Humberto TRONCOSO ([facility] [place] Immunizations Combined list of available immunizations from the 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 Immunization Series Date Given Administered By Site Reaction Lot Number CVX Code Drug It Instructor Status Comments Source COVID Vaccine Moderna 2024 JOSHUARWASHIN GTON 207 complet ed COVID Vaccine Moderna 06/28/24 Recorded 0055C-3 [facility] Humberto influenza virus vaccine, inactivated 2023 JOSHUARWASHIN GTON 88 complet ed Result Comment: [facility]: [id number] 4- 0055C[facility] pneumococcal 20-valent conjugate vaccine 2023 JOSHUARWASHIN GTON NDC: 64019-3 000-10 216 complet ed pneumococ ezequiel 20-valent conjugate vaccine 12/28/23 Recorded 0055C-3 [facility] Humberto COVID Vaccine Moderna 2023 NICHOLAS GTON [facility]: [id number] 207 complet ed COVID Vaccine Moderna 12/28/23 Recorded 0055C-3 [facility]to COVID-19 vaccine(Wily vax 12y+) 2023 AYAKA VIKTORIYAI 312 complet ed Result Comment: [facility] [id number] 0055C-3 [facility] H[facility]to RSV vaccine preF3, recombinant 2022 OG 303 comple t ed RSV vaccine preF3, recombina nt 03/14/23 Recorded Ambulat ory Pharmac y COVID-19 vaccine(Wily vax 12y+) 2022 OG 312 comple t ed COVID-19 vaccine(S pikevax 12y+) 01/18/23 Recorded Ambulat ory Pharmac y tetanus-dipht h toxoids (Td) adult/adol 2022 ETHANJPOCKLIN GTON Shoul antoine, right (delt oid) [id number] sanofi pasteur complet ed tetanus-d iphth toxoids (Td) adult/ado l 01/13/23 Given 0055C-3 [facility] Humberto influenza virus vaccine, inactivated 2022 ETHANJPOCKLIN GTON 88 complet ed influenza virus vaccine, inactivat ed 01/09/23 Recorded 0055C-3 [facility] Humberto SARS-CoV-2 (COVID-19) mRNA-Bivalent 2022 ETHANJPOCKLIN GTON 229 complet ed SARS-CoV- 2 (COVID-19 ) mRNA-Biva lent 09/09/22 Recorded Ambulat ory Pharmac y COVID Vaccine Moderna 2021 ETHANJPOCKLIN GTON 207 complet ed Result Comment: Unit: Unknown Manufactu rer: Moderna US, Inc. (MOD) Ambulat ory Pharmac y COVID-19, mRNA, LNP-S, PF, 100 mcg or 50 mcg dose 2021 LANI Moderna US[employer] Inc. (MOD) Not Given COVID-19, mRNA, LNP-S, PF, 100 mcg or 50 mcg dose DoD COVID Vaccine Moderna 2020 TRANSCR IBED 207 complet ed COVID Vaccine Moderna 02/28/21 Given Ambulat ory Pharmac y SARS-COV-2 (COVID-19) vaccine, mRNA, spike protein, LNP, preservative free, 100 mcg or 50 mcg dose 3 2020 Unknown, Provider 207 Moderna [employer] (MOD) complet ed SARS-COV- 2 (COVID-19 ) vaccine, mRNA, spike protein, LNP, preservat eduardo free, 100 mcg or 50 mcg dose DoD COVID-19, mRNA, LNP-S, PF, 100 mcg or 50 mcg dose 2020 LIBBRA, Moderna [employer] Inc. (MOD) Not Given COVID-19, mRNA, LNP-S, PF, 100 mcg or 50 mcg dose DoD influenza, high-dose seasonal, quad, pf 2020 TRANSCR IBED 197 complet ed influenza , high-dose seasonal, quad, pf 12/16/20 Given Ambulat ory Pharmac y influenza, high-dose seasonal, quadrivalent, .7mL dose, preservative free 1 2020 Unknown, Provider 197 Transcribed (TRS) complet ed influenza , high-dose seasonal, quadrival ent, .7mL dose, preservat eduardo free DoD influenza, high-dose, quadrivalent 2020 LIBBRA, () Not Given influenza , high-dose , quadrival ent DoD COVID Vaccine Moderna 2020 [id number] 207 complet ed COVID Vaccine Moderna 07/09/20 Given Ambulat ory Pharmac y COVID-19 (MODERNA), MRNA, LNP-S, PF, 100 MCG/0.5 ML DOSE 2 2020 207 complet ed MOD; [id number]; 1 [facility] SARS-COV-2 (COVID-19) vaccine, mRNA, spike protein, LNP, preservative free, 100 mcg or 50 mcg dose 2 2020 Unknown, Provider [id number] 207 Moderna [employer] Inc. (MOD) complet ed SARS-COV- 2 (COVID-19 ) vaccine, mRNA, spike protein, LNP, preservat eduardo free, 100 mcg or 50 mcg dose DoD COVID Vaccine Moderna 2020 [id number] 207 complet ed COVID Vaccine Moderna 06/11/20 Given Ambulat ory Pharmac y COVID-19 (MODERNA), MRNA, LNP-S, PF, 100 MCG/0.5 ML DOSE 1 2020 207 complet ed MOD; [id number]; 1 [facility] SARS-COV-2 (COVID-19) vaccine, mRNA, spike protein, LNP, preservative free, 100 mcg or 50 mcg dose 1 2020 Unknown, Provider [id number] 207 Moderna Zynstra[employer] Inc. (MOD) complet ed SARS-COV- 2 (COVID-19 ) vaccine, mRNA, spike protein, LNP, preservat eduardo free, 100 mcg or 50 mcg dose DoD influenza, high-dose seasonal, quad, pf 2019 ETHANJPOCKLIN GTON 197 complet ed Result Comment: Unit: Unknown Manufactu rer: () Ambulat ory Pharmac y influenza, high-dose, quadrivalent 2019 ALUL, () Not Given influenza , high-dose , quadrival ent DoD pneumococcal polysaccharid e, 23 valent 2019 zzLef t Arm [id number] Merck & Company Inc complet ed pneumococ ezequile polysacch aride, 23 valent 09/07/19 Given Ambulat ory Pharmac y pneumococcal polysaccharid e vaccine, 23 valent 1 2019 Unknown, Provider [id number] Merck (MSD) complet ed pneumococ ezequiel polysacch aride vaccine, 23 valent DoD influenza, injectable, quadrivalent- pf 2018 150 Seqirus complet ed influenza , injectabl e, quadrival ent-pf 01/04/19 Given Ambulat ory Pharmac y influenza, seasonal, injectable-pf 2018 TRANSCR IBED 140 complet ed influenza , seasonal, injectabl e-pf 01/04/19 Given Ambulat ory Pharmac y Influenza, seasonal, injectable, preservative free 1 2018 Unknown, Provider 140 Transcribed (TRS) complet ed Influenza , seasonal, injectabl e, preservat eduardo free DoD zoster vaccine, inactivated 2018 [facility] t [id number] [facility], inactivat ed 11/09/18 Given Ambulat ory Pharmac y zoster vaccine recombinant 1 2018 Unknown, Provider [id number] [facility] recombina nt DoD zoster vaccine, inactivated 2018 zzLef t Arm [id number] GlaxoSmithKli ne complet ed zoster vaccine, inactivat ed 08/11/18 Given Ambulat ory Pharmac y zoster vaccine recombinant 1 2018 Unknown, Provider [id number] Epifanioine (SKB) complet ed zoster vaccine recombina nt DoD influenza, injectable, quadrivalent- pf 2017 TRANSCR IBED 150 complet ed influenza , injectabl e, quadrival ent-pf 01/30/18 Given Ambulat ory Pharmac y Influenza, injectable, quadrivalent, preservative free 1 2017 Unknown, Provider 150 Transcribed (TRS) complet ed Influenza , injectabl e, quadrival ent, preservat eduardo free DoD influenza, injectable, quadrivalent- pf 2016 zzLef t Arm [id number] 150 GlaxoSmithKli ne complet ed influenza , injectabl e, quadrival ent-pf 02/28/17 Given Ambulat ory Pharmac y Influenza, injectable, quadrivalent, preservative free 1 2016 Unknown, Provider [id number] [facility] Influenza , injectabl e, quadrival ent, preservat eduardo free DoD influenza, seasonal, injectable 2015 zzLef t Arm [id number] 141 [employer] complet ed influenza , seasonal, injectabl e 01/18/16 Given Ambulat ory Pharmac y Influenza, seasonal, injectable 1 2015 Unknown, Provider [id number] 141 [employer] (CSL) complet ed Influenza , seasonal, injectabl e DoD influenza, seasonal, injectable-pf 2014 zzRig ht Arm [id number] 140 [employer] complet ed influenza , seasonal, injectabl e-pf 12/28/14 Given Ambulat ory Pharmac y Influenza, seasonal, injectable, preservative free 1 2014 Unknown, Provider [id number] 140 [employer] (CSL) complet ed Influenza , seasonal, injectabl e, preservat eduardo free DoD influenza, seasonal, injectable-pf 2013 zzRig Arm [id number] 140 Novartis Pharmaceutica ls complet ed influenza , seasonal, injectabl e-pf 01/26/14 Given Ambulat ory Pharmac y Influenza, seasonal, injectable, preservative free 1 2013 Unknown, Provider [id number] 140 Novartis Pharmaceutica l Myriam. (NOV) complet ed Influenza , seasonal, injectabl e, preservat eduardo free DoD zoster vaccine live 2013 zzLef t Arm [id number] 121 Merck & Company Inc complet ed zoster vaccine live 12/23/13 Given Ambulat ory Pharmac y zoster vaccine, live 1 2013 Unknown, Provider [id number] 121 Merck (MSD) complet ed zoster vaccine, live DoD tetanus, diphtheria, acellular pertu is 2012 zzLef t Arm [id number] 115 sanofi pasteur complet ed tetanus, diphtheri a, acellular pertussis 12/29/12 Given Ambulat ory Pharmac y tetanus toxoid, reduced diphtheria toxoid, and acellular pertu is vaccine, adsorbed 1 2012 Unknown, Provider [id number] 115 Sanofi Pasteur ([facility]) complet ed tetanus toxoid, reduced diphtheri a toxoid, and acellular pertussis vaccine, adsorbed DoD influenza, seasonal, injectable 2011 zzLef t Arm [id number] 141 sanofi pasteur complet ed influenza , seasonal, injectabl e 01/27/12 Given Ambulat ory Pharmac y Influenza, seasonal, injectable 9 2011 Unknown, Provider [id number] 141 Sanofi Pasteur ([facility]) complet ed Influenza , seasonal, injectabl e DoD influenza virus vaccine,split 2009 zzLef t Arm [id number] 15 [employer] complet ed influenza virus vaccine,s plit 03/16/10 Given Ambulat ory Pharmac y influenza virus vaccine, split virus (incl. purified surface antigen)-reti red CODE 1 2009 Unknown, Provider [id number] 15 [employer] (CSL) complet ed influenza virus vaccine, split virus (incl. purified surface antigen)- retired CODE DoD influenza virus vaccine,split 2008 zzLef t Arm [id number] 15 sanofi pasteur complet ed influenza virus vaccine,s plit 10/29/09 Given Ambulat ory Pharmac y influenza virus vaccine, split virus (incl. purified surface antigen)-reti red CODE 1 2008 Unknown, Provider [id number] 15 Sanofi Pasteur ([facility]) complet ed influenza virus vaccine, split virus (incl. purified surface antigen)- retired CODE DoD influenza virus vaccine,split [facility] [id number] 15 sanofi pasteur complet ed influenza virus vaccine,s plit 04/19/08 Given Ambulat ory Pharmac y influenza virus vaccine, split virus (incl. purified surface antigen)-reti red CODE 1 2007 Unknown, Provider [id number] 15 Sanofi Pasteur ([facility]) complet ed influenza virus vaccine, split virus (incl. purified surface antigen)- retired CODE [facility] influenza virus vaccine,split 2006 [facility] Arm [id number] 15 GlaxoSmithKli ne complet ed influenza virus vaccine,s plit 03/04/07 Given Ambulat ory Pharmac y influenza virus vaccine, split virus (incl. purified surface antigen)-reti red CODE 1 2006 Unknown, Provider [id number] 15 [facility] ([facility]) complet ed influenza virus vaccine, split virus (incl. purified surface antigen)- retired CODE [facility] influenza virus vaccine,split 2006 [facility] Arm [id number] 15 GlaxoSmithKli ne complet ed influenza virus vaccine,s plit 05/14/06 Given Ambulat ory Pharmac y influenza virus vaccine, split virus (incl. purified surface antigen)-reti red CODE 1 2006 Unknown, Provider [id number] 15 [facility] ([facility]) complet ed influenza virus vaccine, split virus (incl. purified surface antigen)- retired CODE [facility] influenza virus vaccine,split [facility] [id number] sanofi pasteur complet ed influenza virus vaccine,s plit 03/29/05 Given Ambulat ory Pharmac y influenza virus vaccine, split virus (incl. purified surface antigen)-reti red CODE 1 2004 Unknown, Provider [id number] 15 Sanofi Pasteur ([facility]) complet ed influenza virus vaccine, split virus (incl. purified surface antigen)- retired CODE [facility] tetanus-dipht h toxoids (Td) adult/adol 2004 zzRig ht Arm [id number] 09 sanofi pasteur complet ed tetanus-d iphth toxoids (Td) adult/ado l 09/14/04 Given Ambulat ory Pharmac y tetanus and diphtheria toxoids, adsorbed, preservative free, for adult use (2 Lf of tetanus toxoid and 2 Lf of diphtheria toxoid) 1 2004 Unknown, Provider [id number] Sanofi Pasteur ([facility]) complet ed tetanus and diphtheri a toxoids, adsorbed, preservat eduardo free, for adult use (2 Lf of tetanus toxoid and 2 Lf of diphtheri a toxoid) [facility] influenza virus vaccine,split 2002 zzLef t Arm [id number] 15 sanofi pasteur complet ed influenza virus vaccine,s plit 02/22/03 Given Ambulat ory Pharmac y influenza virus vaccine, split virus (incl. purified surface antigen)-reti red CODE 1 2002 Unknown, Provider [id number] 15 Sanofi Pasteur ([facility]) complet ed influenza virus vaccine, split virus (incl. purified surface antigen)- retired CODE [facility] influenza virus vaccine,split 1998 [id number] 15 [employer] [employer] complet ed influenza virus vaccine,s plit 03/29/99 Given Ambulat ory Pharmac y influenza virus vaccine, split virus (incl. purified surface antigen)-reti red CODE 1 1998 Unknown, Provider [id number] 15 [facility] ([facility]) complet ed influenza virus vaccine, split virus (incl. purified surface antigen)- retired CODE [facility] Encounters Combined list of: 1) Encounters from Department of Veterans Affairs facilities going backup to the last 18 months, not all VA inpatient encounters are included; 2) Encounters from the Department of Defense facilities going backup to 280 months. Location Location Details Encounter Type Encounter Number Reason For Visit Attending Provider ADM Date DC Date Status Disposition Source [facility] Humberto TRONCOSO [facility]Fam ricci Practice Non-GME FHI1) TELE CONSULT [id number] med renewal JOE HERNANDEZ 08/21 [facility] Humberto TRONCOSO [facility])(F amily Practic e Non-GME FHI1) [facility] Humberto TRONCOSO [facility]Fam ricci Practice Non-GME FHI1) OUTPATIENT [id number] discuss cholest rol SERGEI Javier 09/06 Released w/o Limitations [address] [place] [address] [employer] [facility])(F amily Practic e Non-GME FHI1) [address] [place] [address] Humberto B [facility])([facility] ricci Practice Non-GME FHI2) OUTPATIENT [id number] Look over shot record to see if it's up to date. MASON MACIAS 09/14 Released w/o Limitations [address] [place], [place] [address]B [facility])(F amily Practic e Non-GME FHI2) [address] [place] [address] Humberto B [facility])([facility] ricci Practice Non-GME FHI1) TELE CONSULT [id number] RX REFILL JOE HERNANDEZ 10/[address] [place] [address] Humberto B [facility])(F amily Practic e Non-GME FHI1) [address] [place] [address] Humberto B [facility] ricci Practice Non-GME FHI1) TELE CONSULT [id number] returni ng call JOE HERNANDEZ 11/[address] [place] [address])(F amily Practic e Non-GME FHI1) [address] [place] [address] Humberto B [facility])([facility] ricci Practice Non-GME FHI1) OUTPATIENT [id number] f/u on HTN SREGEI BAIG 11/13 Released w/o Limitations [address] [place] [address])(F amily Practic e Non-GME FHI1) [address] [place] [address] Humberto B [facility])([facility] ricci Practice Non-GME FHI1) OUTPATIENT [id number] Need for Lab SERGEI Aparicio 01/03 Released w/o Limitations [address] [place] [address] Humberto B [facility])(F amily Practic e Non-GME FHI1) [address] [place] [address] Humberto B [facility])([facility] ricci Practice Non-GME FHI2) TELE CONSULT [id number] Meds Refill ANNY HEWITT 03/[address] [place] [address] Humberto B [facility])(F amily Practic e Non-GME FHI2) [address] [place] [address] [employer] [facility] ricci Practice Non-GME FHI2) TELE CONSULT [id number] test results ANNY HEWITT 03/[address] [place] [address] [employer] [facility])(F amily Practic e Non-GME FHI2) [address] [place] [address])([facility] ricci Practice Non-GME FHI2) OUTPATIENT [id number] evaluat e pain in SERGEI Wu 05/20 Released w/o Limitations [address] [place] [address])(F amily Practic e Non-GME FHI2) [address] [place] [address])([facility] ricci Practice Non-GME FHI1) TELE CONSULT [id number] ANNY MAKI 07/[address] [place] [address])(F amily Practic e Non-GME FHI1) [address] [place] [address])([facility] ricci Practice Non-GME FHI2) TELE CONSULT [id number] med renewal ANNY HEWITT 09/[address] [place] [address])(F amily Practic e Non-GME FHI2) [address] [place] [address])([facility] ricci Practice Non-GME FHI2) TELE CONSULT [id number] Med refill- ANNY Olivas 12/[address] [place] [address])(F amily Practic e Non-GME FHI2) [address] [place] [address])([facility] ricci Practice Non-GME FHI2) TELE CONSULT [id number] Med refill -ANNY Olivas 01/[address] [place] [address])(F amily Practic e Non-GME FHI2) [address] [place] [address])([facility] ricci Practice Non-GME FHI2) TELE CONSULT [id number] 1521-re fferal issues- ANNY Olivas 02/[address] [place] [address])(F amily Practic e Non-GME FHI2) [address] [place] [address])([facility] ricci Practice Non-GME FHI1) TELE CONSULT [id number] ANNY Stein 02/[address] [place] [address])(F amily Practic e Non-GME FHI1) [address] [place] [address])([facility] ricci Practice Non-GME FHI1) TELE CONSULT [id number] LION Torres 05/[address] [place] [address])(F amily Practic e Non-GME FHI1) [address] [place] [address]) OUTPATIENT [id number] BLOOD PRESSUR E AND CHOLEST ELE MEE RONDON 05/14 Released w/o Limitations [address] [place] [address])(F amily Practic e Non-GME FHI2) [address] [place] [address])([facility]) TELE CONSULT [id number] ANNY Maki 05/[address] [place] [address])(F amily Practic e Non-GME FHI1) [address] [place] [address])([facility]) TELE CONSULT [id number] ANNY Walters 05/[address] [place] [address])(F amily Practic e Non-GME FHI1) [address] [place] [address])([facility]) OUTPATIENT [id number] Ear Problem and BP MEE RONDON 06/13 Released w/o Limitations [address] [place] [address])(F amily Practic e Non-GME FHI2) [address] [place] [address])(Aud iology) OUTPATIENT [id number] Hearing loss CATHERINE ALFREDO 07/03 Released w/o Limitations [address] [place] [address])(A udiolog y) [address] [place] [address])(Aud iology) OUTPATIENT [id number] hae + hearing aid info CATHERINE ALFREDO 07/21 Released w/o Limitations [address] [place] [address])(A udiolog y) [address] [place] [address])(Aud iology) OUTPATIENT [id number] hae + hearing aid CATHERINE ALFREDO 08/25 Released w/o Limitations [address] [place] [address])(A udiolog y) [address] [place] [address])(Aud iology) OUTPATIENT [id number] ear cleanin liyz JUNICATHERINE Hortencia 08/26 Released w/o Limitations [address] [place] [address])(A udiolog y) [address] [place] [address])([facility] ricci Practice Non-GME FHI1) TELE CONSULT [id number] meds ANNY Marques 08/[address] [place] [address])(F amily Practic e Non-GME FHI1) [address] [place] [address])([facility] ricci Practice Non-GME FHI1) TELE CONSULT [id number] meds ANNY Cope 09/[address] [place] [address])(F amily Practic e Non-GME FHI1) [address] [place] [address])([facility] ricci Practice Non-GME FHI1) TELE CONSULT [id number] ZACH Cristina 09/[address] [place] [address])(F amily Practic e Non-GME FHI1) [address] [place] [address])([facility] ricci Practice Non-GME FHI2) OUTPATIENT [id number] f/u on medicat ion [phone] 9908MEE CARPENTER 09/17 Released w/o Limitations [address] [place] [address])(F amily Practic e Non-GME FHI2) [address] [place] [address])([facility] ricci Practice Non-GME FHI1) TELE CONSULT [id number] ANNY Alicia 10/[address] [place] [address])(F amily Practic e Non-GME FHI1) [address] [place] [address])([facility] ricci Practice Non-GME FHI1) TELE CONSULT [id number] cb update ref for ANNY Brizuela 11/[address] [place] [address])(F amily Practic e Non-GME FHI1) [address] [place] [address])([facility] ricci Practice Non-GME FHI1) TELE CONSULT [id number] request meds - LAYLA Lomax 12/[address] [place] [address])(F amily Practic e Non-GME FHI1) [address] [place] [address])(Aud iology) OUTPATIENT [id number] ear cleanin CATHERINE Arreola 01/02 Released w/o Limitations [address] [place] [address])(A udiolog y) [address] [place] [address])(Fam ricci Practice Non-GME FHI1) TELE CONSULT [id number] meds req- ANNY Olivas 01/[address] [place] [address])(F amily Practic e Non-GME FHI1) [address] [place] [address])([facility] ricci Practice Non-GME FHI1) TELE CONSULT [id number] bp med questio ns-pcm ANNY Olivas 01/[address] [place] [address])(F amily Practic e Non-GME FHI1) [address] [place] [address])([facility] ricci Practice Non-GME FHI2) TELE CONSULT [id number] referra bassam odonnell on-ANNY Floyd 03/[address] [place] [address])(F amily Practic e Non-GME FHI2) [address] [place] [address])([facility] ricci Practice Non-GME FHI2) TELE CONSULT [id number] meds request - ANNY Olivas 06/[address] [place] [address])(F amily Practic e Non-GME FHI2) [address] [place] [address])([facility] ricci Practice Non-GME FHI2) OUTPATIENT [id number] f/u bp, cholest MEE Ingram 06/29 Released w/o Limitations [address] [place] [address])(F amily Practic e Non-GME FHI2) [address] [place] [address])([facility] ricci Practice Non-GME FHI1) TELE CONSULT [id number] referra ANNY Maier 11/[address] [place] [address])(F amily Practic e Non-GME FHI1) [address] [place] [address] [employer] [facility] ricci Practice Non-GME FHI2) OUTPATIENT [id number] abnorma l ekg fr civ BERTHA Becker 12/06 Released w/o Limitations [address] [place] [address] Humberto LEYB [facility])(F amily Practic e Non-GME FHI2) [address] [place] [address] Humberto B [facility])([facility] ricci Practice Non-GME FHI2) TELE CONSULT [id number] renew referra l/ANNY Cuellar 12/[address] [place] [address] Humberto B [facility])(F amily Practic e Non-GME FHI2) [address] [place] [address] Humberto B [facility]) OUTPATIENT [id number] MAURICIO ROSE 01/10 Released w/o Limitations [address] [place] [address] Humberto JILB [facility])(E lectroc ardiogr am Clinic) [address] [place] [address] [facility]to [facility])(Car diologyPr ocedure [facility] ) OUTPATIENT [id number] CORONAR Y ARTERY DISEASE TONY SNYDER 01/25 Released w/o Limitations [address] [place] [address] Humberto B [facility])(C ardiolo gyProce dure Schedul es) [address] [place] [address] Humberto JILB [facility])([facility] Practice Non-GME FHI2) TELE CONSULT [id number] lab results -- PASQUALE Segura 01/[address] [place] [address] Humberto JILB [facility])(F amily Practic e Non-GME FHI2) [address] [place] [address] Humberto B [facility])([facility] ricci Practice Non-GME FHI1) OUTPATIENT [id number] immuniz ations- JEANNINE Peñaloza 04/19 Released w/o Limitations [address] [place] [address] [employer] [facility])(F amily Practic e Non-GME FHI1) [address] [place] [address] [employer] [facility])(Fam ricci Med Tm B Non-AD BCC) TELE CONSULT [id number] Sunil/ rx refill PASQUALE BRAY 08/[address] [place] [address] Humberto B [facility])(F amily Med Tm B Non-AD BCC) [address] [place] [address] Humberto TRONCOSO [facility])(Fam ricci Med Tm B Non-AD BCC) OUTPATIENT [id number] annual physica l/HTN/H LP BERTHA BARNES 08/15 Released w/o Limitations [address] [place] [address] Humberto TRONCOSO ([facility] [place])(F amily Med Tm B Non-AD BCC) [address] [place] [address] Humberto TRONCOSO ([facility] [place])(Aud iology) OUTPATIENT [id number] ear cleanin CATHERINE Arreola A 08/31 Released w/o Limitations [address] [place] [address] Group Humberto TRONCOSO ([facility] [place])(A udiolog y) [address] [place] [address] Group Humberto TRONCOSO ([facility] [place])(Fam ricci Med Tm B Non-AD BCC) TELE CONSULT [id number] refill med/marilu ANNY Hart 09/[address] [place] [address] Humberto TRONCOSO ([facility] [place])(F amily Med Tm B Non-AD BCC) [address] [place] [address] Humberto TRONCOSO [facility])(Fam ricci Med Tm B Non-AD BCC) OUTPATIENT [id number] f/u bloodwo rk - BERTHA BARNES 10/20 Released w/o Limitations [address] [place] [address] Humberto TRONCOSO ([facility])(F amily Med Tm B Non-AD BCC) [address] [place] [address] Humberto TRONCOSO ([facility])(Fam ricci Med Tm B Non-AD BCC) TELE CONSULT [id number] Sunil/ ANNY Jeffries 02/[address] [place] [address] Humberto TRONCOSO ([facility] [place])(F amily Med Tm B Non-AD BCC) [address] [place] [address] Humberto TRONCOSO ([facility])(Fam ricci Med Tm B Non-AD BCC) TELE CONSULT [id number] ANNY Pandya 03/[address] [place] [address] Group Humberto TRONCOSO ([facility] [place])(F amily Med Tm B Non-AD BCC) [facility] Humberto LEYB ([facility])([facility] Internal Medicine ) OUTPATIENT [id number] lumps on right arm MAYCOL BOYD 04/14 Released w/o Limitations [address] [place] [address] Group [employer] LEYB ([facility])(S cott Interna l Medicin e Tm) [facility] Humberto JILB ([facility])([facility] Internal Medicine ) TELE CONSULT [id number] Lab Results MAYCOL BOYD 04/24 [employer] Humberto TRONCOSO ([facility] [place])(S cott Interna l Medicin e Tm) [employer] Humberto TRONCOSO [facility])([facility] ) OUTPATIENT [id number] initial appoint ment MAYCOL BOYD 05/10 Released w/o Limitations [employer] Humberto TRONCOSO ([facility] [facility])(S cott Interna l Medicin e Tm) [employer] [facility])(Opt ometry) OUTPATIENT [id number] IMPAIRE D FASTING GLUCOSE JEMHAMILTON Jean Claude 05/26 Released w/o Limitations [employer] Humberto TRONCOSO ([facility])(O ptometr y) [facility] Humberto TRONCOSO [facility]) OUTPATIENT [id number] IMPAIRE D FASTING GLUCOSE FAHEEM CARR 06/05 Released w/o Limitations [employer] Humberto TRONCOSO [facility])(N utritio nal Medicin e) [facility] Humberto Karlo [facility])(Aud iology) OUTPATIENT [id number] ear cleanCATHERINE Valdez 08/28 Released w/o Limitations [employer] Humberto JILKarlo ([facility])(A udiolog y) [facility] Humberto TRONCOSO [facility])([facility] Internal Medicine ) TELE CONSULT [id number] Rx refill JEROME RODRIGUEZ 10/09 Medical Group Humberto TRONCOSO ([facility])(S cott Interna l Medicin e Tm) [facility] Humberto TRONCOSO [facility])([facility] Internal Medicine ) TELE CONSULT [id number] med refill JEROME RODRIGUEZ 11/10 Medication Refill Forwarded [facility] Humberto TRONCOSO [facility])(S cott Interna l Medicin e Tm) [facility] Humberto TRONCOSO ([facility] ) OUTPATIENT [id number] F/U cholest ele [phone] MAYCOL BOYD 12/26 Released w/o Limitations [employer] Humberto TRONCOSO ([facility])(S cott Interna l Medicin e Tm) [facility] Humberto TRONCOSO [facility] ) OUTPATIENT [id number] f/u on labs [phone] MONICA DUMONT 04/03 Released w/o Limitations [facility])(S cott Interna l Medicin e Tm) [facility])([facility] Internal Medicine ) TELE CONSULT [id number] Lab Results PASQUALE MEMBRENO 04/09 Referred for Appointment [facility])(S cott Interna l Medicin e Tm) [facility])([facility] Internal Medicine ) TELE CONSULT [id number] Prostat e exam - Franko yoon - [id number] [address] [place] [address] ROCIO BAIG 05/09 Referred for Appointment [facility])(S cott Interna l Medicin e Tm) [address] [place] [address])([facility] Internal Medicine ) TELE CONSULT [id number] [facility] Dr. Franko yoon [facility] referra l. Cell #. JEROME RODRIGUEZ 07/03 Referred for Appointment [facility])(S cott Interna l Medicin e Tm) [facility])([facility] Internal Medicine ) TELE CONSULT [id number] med refill at [facility] TONY Bryant 09/[address] [place] [address])(S cott Interna l Medicin e Tm) [facility])([facility] Internal Medicine ) TELE CONSULT [id number] ludy paul out of piotr cuellar e said filled out paperwo ROCIO Schmitz 09/25 [facility] Humberto [facility])(S cott Interna l Medicin e Tm) [facility])([facility] Internal Medicine ) OUTPATIENT [id number] follow up blood pressur e [phone] SHEILA UGARTE 10/04 Released w/o Limitations [facility])(S cott Interna l Medicin e Tm) [facility])([facility] Internal Medicine ) OUTPATIENT [id number] f/u - on b.p and test results - [id number] [phone] SHEILA UGARTE [place]ENTON 10/17 Released w/o Limitations [address] [place] [address])(S cott Interna l Medicin e Tm) [address] [place] [address])([facility] Internal Medicine ) TELE CONSULT [id number] [facility] justin yoon cad fisht JEROME RODRIGUEZ 03/[address] [place] [address])(S cott Interna l Medicin e Tm) [address] [place] [address])([facility] Internal Medicine ) TELE CONSULT [id number] MAYCOL Gan 05/[address] [place] [address])(S cott Interna l Medicin e Tm) [address] [place] [address])([facility] ) OUTPATIENT [id number] F/U [phone] MAYCOL BOYD 06/05 Released w/o Limitations [address] [place] [address])([facility]) [address] [place] [address])([facility] ) TELE CONSULT [id number] Notes Entered by: Bob BAIG 17 Jul 2011 09 ------- ------- ------- ------- -- Lab Order ROCIO BAIG 07/[address] [place] [address])([facility]) [address] [place] [address])([facility] ) TELE CONSULT [id number] Notes Entered by: MASON ERVIN 13 Aug 2011 0905 ------- ------- ------- ------- -- Tcyissel yoon ph [phone] ca d JEROME Herring 08/[address] [place] [address])([facility]) [address] [place] [address])([facility] ) TELE CONSULT [id number] Notes Entered by: NICKOLAS KILGORE 27 Sep 2011 1353 ------- ------- ------- ------- -- F/u for labwork Franko JEROME Cm 09/[address] [place] [address])([facility]) [address] [place] [address])([facility] ) TELE CONSULT [id number] Notes Entered by: VERONICA WALTON 27 Sep 2011 1539 ------- ------- ------- ------- -- Referra bassam [facility] Franko karrie [phone] - [facility] JEROME RODRIGUEZ 09/[address] [place] [address])([facility]) [address] [place] [address])([facility] ) TELE CONSULT [id number] Notes Entered by: AMANDA STEWART 29 Oct 2011 0651 ------- ------- ------- ------- -- Medicat ion renewal - Franko yoon - [phone] - tsg JEROME RODRIGUEZ 10/[address] [place] [address])([facility]) [address] [place] [address])([facility] ) TELE CONSULT [id number] Notes Entered by: BRISEIDA JENSEN 05 Nov 2011 0843 ------- ------- ------- ------- -- Med renewal /Jeff ks 8.9908/ mnm JEROME RODRIGUEZ 11/[address] [place] [address])([facility]) [address] [place] [address])([facility] ) OUTPATIENT [id number] follow- up for HCM, med renewal s MAYCOL BOYD 12/05 Released w/o Limitations [address] [place] [address])([facility]) [employer] ([facility] [place] Tm) TELE CONSULT [id number] Notes Entered by: DANIEL WEI 06 Dec 2011 1623 ------- ------- ------- ------- -- lab MICHEL COX 12/05 Referred for Appointment [employer] ([facility] [place]) [facility] [employer] ([facility] [place])([facility] Tm) OUTPATIENT [id number] F/U lab work [phone] MAYCOL BOYD 12/23 Released w/o Limitations [employer] ([facility] [place]) [employer] ([facility] [place] [place] [facility]) OUTPATIENT [id number] diabSHELDON Erickson 12/31 Released w/o Limitations [employer] ([facility] [place]) [employer] ([facility] [place])(Opt ometry) OUTPATIENT [id number] diabMASON Anderson 01/16 Released w/o Limitations [facility] [employer] ([facility] [place])(O ptometr y) [facility] [employer] [facility] [place] [place] [facility]) OUTPATIENT [id number] SHELDON REYES 03/17 Released w/o Limitations [employer] ([facility] [place] [employer] ([facility] [place])([facility] ) OUTPATIENT [id number] LUMP ON BACK H# MAYCOL BOYD 03/30 Released w/o Limitations [facility] [employer] ([facility] [place] Medic[facility] Tm) [facility] [employer] ([facility] [place])([facility] Tm) TELE CONSULT [id number] Notes Entered by: MIGDALIA SWARTZ 03 Apr 2012 1043 ------- ------- ------- ------- -- Network Results - PAIN MANAGEM ENT 2 MAYCOL BOYD 04/[address] [place] [address])([facility]) [address] [place] [address])([facility] matology) OUTPATIENT [id number] lump in / on the skin HUMBERTO BOJORQUEZ 04/10 Released w/o Limitations [address] [place] [address])(D ermatol ogy) [address] [place] [address])([facility] [place] Pharm D [facility]) OUTPATIENT [id number] Notes Entered by: KANDI CADENA 01 Jun 2012 1157 ------- ------- ------- ------- -- Tobacco Cessati on KANDI GOLDBERG 06/01 Released w/o Limitations [address] [place] [address])([facility]) [address] [place] [address])([facility] ) TELE CONSULT [id number] Notes Entered by: DANIEL WEI 09 Jun 2012 1125 ------- ------- ------- ------- -- WENDI Goldsmith 06/[address] [place] [address] ([facility] [place]) [address] [place] [address])([facility] ) OUTPATIENT [id number] f/u diabete s [id number] MAYCOL BOYD 06/17 Released w/o Limitations [address] [place] [address])([facility]) [address] [place] [address])([facility] ) TELE CONSULT [id number] Notes Entered by: DANIEL WEI 17 Jun 2012 1104 ------- ------- ------- ------- -- JEROME Chapman 06/[address] [place] [address])([facility]) [address] [place] [address])([facility] ) TELE CONSULT [id number] Notes Entered by: MIGDALIA SWARTZ 29 Jun 2012 0807 ------- ------- ------- ------- -- Network Results - PAIN MANAGEM ENT - 06/26/12 MAYCOL BOYD 06/[address] [place] [address])([facility]) [address] [place] [address])([facility] ) OUTPATIENT [id number] hemroid s, bleedin g [phone] TONY HUTCHINS 09/17 Released w/o Limitations [address] [place] [address])([facility]) [address] [place] [address])([facility] ) TELE CONSULT [id number] Notes Entered by: VERONICA WALTON 06 Oct 2012 1203 ------- ------- ------- ------- -- Philip Abdul [facility] - [id number] JEROME RODRIGUEZ 10/[address] [place] [address])([facility]) [address] [place] [address])([facility] ) TELE CONSULT [id number] Notes Entered by: JUANITA REYES 30 Nov 2012 1031 ------- ------- ------- ------- -- Med Refill- Jovanni/Bud [phone]- [id number] ROCIO BAIG 11/[address] [place] [address])([facility]) [address] [place] [address])([facility] ) OUTPATIENT [id number] f/u for medicat ion [id number] CHRISTOPHE BAIG 12/29 Released w/o Limitations [address] [place] [address])([facility]) [address] [place] [address])([facility] ) TELE CONSULT [id number] Notes Entered by: VAZQUEZ BRENNAN 15 Jan 2013 1325 ------- ------- ------- ------- -- Network Results - GASTROE NTEROLO GY 12/18/12 CHRISTOPHE BAIG 01/[address] [place] [address])([facility]) [address] [place] [address])([facility] ) TELE CONSULT [id number] Notes Entered by: MIGDALIA SWARTZ 21 Jan 2013 1002 ------- ------- ------- ------- -- Network Results - PAIN MANAGEM ENT - 01/21/13 TONY HUTCHINS 01/[address] [place] [address])([facility]) [address] [place] [address])([facility]toine matology) OUTPATIENT [id number] SKIN NEOPLAS M UNCERTA IN JONATHANO HUMBERTO BARONE 01/21 Released w/o Limitations [address] [place] [address])(Sebastian manriquez) [address] [place] [address])([facility] ) TELE CONSULT [id number] Notes Entered by: BRISEIDA JENSEN 24 Feb 2013 1537 ------- ------- ------- ------- -- Med renewal /Jovanni/ ROCIO BAIG 02/[address] [place] [address])([facility]) [address] [place] [address])([facility] ) TELE CONSULT [id number] Notes Entered by: Anjel BAILEY 12 Mar 2013 1336 ------- ------- ------- ------- -- Swollen right ankle Jovanni [phone] MAXIM KUHN 03/[address] [place] [address])([facility]) [address] [place] [address])([facility] Tm) TELE CONSULT [id number] Notes Entered by: Donald BAILEY 15 Mar 2013 0744 ------- ------- ------- ------- -- Told patient to call back today/H otilia/Martin [phone] MAXIM KUHN 03/[address] [place] [address])([facility]) [address] [place] [address])([facility] Tm) TELE CONSULT [id number] Notes Entered by: Donald BAILEY 15 Mar 2013 1000 ------- ------- ------- ------- -- Med refill/ Jovanni/Bud 18 [id number] MAXIM KUHN 03/[address] [place] [address])([facility]) [address] [place] [address])([facility] Tm) OUTPATIENT [id number] f/u for diabete s [id number] CHRISTOPHE BAIG 06/09 Released w/o Limitations [address] [place] [address])([facility]) [address] [place] [address])([facility] Tm) TELE CONSULT [id number] Notes Entered by: MIGDALIA SWARTZ 15 Jun 2013 1023 ------- ------- ------- ------- -- Network Results - PAIN MANAGEM ENT - 06/14/13 TONY HUTCHINS 06/[address] [place] [address])([facility]) [address] [place] [address])([facility] tt Disease Managemen t) TELE CONSULT [id number] Notes Entered by: DEX MCCORD 16 Jun 2013 1136 ------- ------- ------- ------- -- Pt due for fasting lab. DEX MCCORD Clara 06/[address] [place] [address])(S cott Disease Managem ent) [address] [place] [address])([facility] Tm) TELE CONSULT [id number] Notes Entered by: MIGDALIA SWARTZ 26 Jul 2013 1437 ------- ------- ------- ------- -- Network Results - PAIN MANAGEM ENT - 07/21/13 CHRISTOPHE BAIG 07/[address] [place] [address])([facility]) [address] [place] [address])([facility] Tm) TELE CONSULT [id number] Notes Entered by: MIGDALIA SWARTZ 23 Aug 2013 1023 ------- ------- ------- ------- -- Network Results - PAIN MANAGEM ENT - 08/18/13 CHRISTOPHE BAIG 08/[address] [place] [address])([facility]) [address] [place] [address])([facility] Tm) TELE CONSULT [id number] Notes Entered by: Donald BAILEY 14 Sep 2013 1457 ------- ------- ------- ------- -- Med refill/ Jovanni/Bud [id number] HAO AYERS 09/[address] [place] [address])([facility]) [address] [place] [address])([facility] Tm) OUTPATIENT [id number] f/u for diabete s [id number] CHRISTOPHE BAIG 10/07 Released w/o Limitations [address] [place] [address])([facility]) [address] [place] [address])([facility] Tm) TELE CONSULT [id number] Notes Entered by: RAINER PARISH 21 Oct 2013 1335 ------- ------- ------- ------- -- MARVA Prather 10/[address] [place] [address])([facility]) [address] [place] [address])([facility] ) TELE CONSULT [id number] Notes Entered by: Anjel BAILEY 08 Nov 2013 0711 ------- ------- ------- ------- -- SX Spider bite Jovanni HAO AYERS 11/[address] [place] [address])([facility]) [address] [place] [address])([facility] ) TELE CONSULT [id number] Notes Entered by: MARIAH HOFF 10 Nov 2013 1007 ------- ------- ------- ------- -- Retro MARVA Tavera 11/[address] [place] [address])([facility]) [address] [place] [address])([facility] ) OUTPATIENT [id number] follow up for lump on right elbow [id number] CHRISTOPHE BAIG 11/29 Released w/o Limitations [address] [place] [address])([facility]) [address] [place] [address])([facility] ) TELE CONSULT [id number] Notes Entered by: MIGDALIA SWARTZ 02 Dec 2013 0749 ------- ------- ------- ------- -- Network Results - PAIN MANAGEM ENT - 11/03/13 CHRISTOPHE BAIG 12/[address] [place] [address])([facility]) [address] [place] [address])([facility] ) OUTPATIENT [id number] f/u for lump on L elbow x 1 month-n eeds to be drained again [id number] CHRISTOPHE BAIG 12/13 Released w/o Limitations [address] [place] [address])([facility]) [address] [place] [address])([facility] ) TELE CONSULT [id number] Notes Entered by: Anjel BAIG 03 Jan 2014 1646 ------- ------- ------- ------- -- Renal insuffi marcelleency MAXIM KUHN 01/[address] [place] [address])([facility]) [address] [place] [address])([facility] ) TELE CONSULT [id number] Notes Entered by: Anjel BAIG 07 Jan 2014 1404 ------- ------- ------- ------- -- Laborat ory results MAXIM KUHN 01/[address] [place] [address])([facility]) [address] [place] [address])([facility] ) TELE CONSULT [id number] Notes Entered by: BARBARA SAN 04 Mar 2014 0849 ------- ------- ------- ------- -- Med refill/ aidan 18.288. 9908 HAO AYERS 03/[address] [place] [address])([facility]) [address] [place] [address])([facility] ) TELE CONSULT [id number] Notes Entered by: NICKOLAS KILGORE 30 May 201414 ------- ------- ------- ------- -- Med refill Jovanni HAO AYERS 05/[address] [place] [address])([facility]) [address] [place] [address])([facility] ) OUTPATIENT [id number] follow up for medicat [id number] CHRISTOPHE BAIG 06/21 Released w/o Limitations [address] [place] [address])([facility]) [address] [place] [address])([facility] ) TELE CONSULT [id number] Notes Entered by: Anjel BAIG 23 Jun 2014 0823 ------- ------- ------- ------- -- Laborat ory results HAO AYERS 06/[address] [place] [address])([facility]) [address] [place] [address])([facility] ) TELE CONSULT [id number] Notes Entered by: Bob BAIG 01 Aug 2014 0749 ------- ------- ------- ------- -- Pain Managem ent Referra ROCIO Hancock 08/[address] [place] [address])([facility]) [address] [place] [address])([facility] ) TELE CONSULT [id number] Notes Entered by: VERONICA WALTON 18 Aug 2014 1150 ------- ------- ------- ------- -- John Baig - [phone] ROCIO BAIG 08/[address] [place] [address])([facility]) [address] [place] [address])(Opt ometry) OUTPATIENT [id number] rt exam/re schedul ed per clinic GETACHEW CUADRA 08/25 Released w/o Limitations [address] [place] [address])(O ptometr y) [address] [place] [address])([facility] ) TELE CONSULT [id number] Notes Entered by: Donald BAILEY 06 Dec 2014 0910 ------- ------- ------- ------- -- Sx discuss hemantonellaoi d wyatt sullivan/Yara y/[phone]* HAO AYERS 12/[address] [place] [address])([facility]) [address] [place] [address])([facility] ) OUTPATIENT [id number] Hemorrh oids CHRISTOPHE BAIG 12/06 Released w/o Limitations [address] [place] [address])([facility] Intern[facility] Medicin e Tm) [address] [place] [address])([facility] ) OUTPATIENT [id number] F/U hemorrh oids [id number] CHRISTOPHE BAIG 02/24 Released w/o Limitations [address] [place] [address])([facility] Tm) [address] [place] [address])([facility] ) TELE CONSULT [id number] Notes Entered by: MITCHELL,SH JASPER Cortes 27 Apr 2015 1518 ------- ------- ------- ------- -- Network Results -GASTRO ENTEROL OGY 03/28/15 OHG CHRISTOPHE BAIG 04/[address] [place] [address])([facility]) [address] [place] [address])([facility] ) TELE CONSULT [id number] Notes Entered by: DEON SCHAFFER 06 Jun 2015 08 ------- ------- ------- ------- -- Med Renewal /Jovanni/ 288.990 8 HAO AYERS 06/[address] [place] [address])([facility]) [address] [place] [address])([facility] ) OUTPATIENT [id number] 3 Month F/U - [id number] CHRISTOPHE BAIG 06/22 Released w/o Limitations [address] [place] [address] [facility])([facility] Intern[facility] Medicin [facility] Tm) [address] [place] [address])([facility] ) TELE CONSULT [id number] Notes Entered by: DEON SCHAFFER 28 Aug 2015 0951 ------- ------- ------- ------- -- STAT Referra l Renewal Request (appt 29 August)/Manuel crenshaw/288 .9908 HAO AYERS 08/[address] [place] [address])([facility]) [address] [place] [address])([facility] ) TELE CONSULT [id number] Notes Entered by: JULIENNE IVY 06 Dec 2015 0921 ------- ------- ------- ------- -- Med refills /Jovanni/ /c HAO Christopher 12/[address] [place] [address])([facility] Tm) [address] [place] [address])([facility] ) TELE CONSULT [id number] Referra l renewal HAO AYERS 01/[address] [place] [address])([facility] Intern[facility] Medicin e Tm) [address] [place] [address])([facility] ) TELE CONSULT [id number] Notes Entered by: LAMAR LI 29 Mar 2016 1147 ------- ------- ------- ------- -- Med Renewal / Jovanni / - sgj HAO AYERS 03/[address] [place] [address])([facility] Tm) [address] [place] [address])([facility] ) TELE CONSULT [id number] Notes Entered by: NICKIE BAKER 08 Apr 2016 1149 ------- ------- ------- ------- -- Med Refill/ HAO Cardozo 04/[address] [place] [address])([facility] Intern[facility] Medicin [facility] Tm) [address] [place] [address])([facility] ) TELE CONSULT [id number] Notes Entered by: RAYMON LU 07 May 2016 1434 ------- ------- ------- ------- -- Network Results Psychia try 6 CHRISTOPHE BAIG 05/[address] [place] [address])([facility] Intern[facility]in [facility] Tm) [address] [place] [address])([facility] ) TELE CONSULT [id number] Notes Entered by: Hortencia RÍOS 23 May 2016 1427 ------- ------- ------- ------- -- Med Renewal / Jovanni/ - HAO Carpio 05/[address] [place] [address])([facility] Intern[facility] Medicin [facility] Tm) [address] [place] [address])([facility] ) OUTPATIENT [id number] Physica l, Med Renewal s, 288.990 8 CHRISTOPHE BAIG 07/22 Released w/o Limitations [address] [place] [address])([facility] Intern[facility] Medicin e Tm) [address] [place] [address])([facility] ) TELE CONSULT [id number] Notes Entered by: DEON SCHAFFER 23 Jul 2016 1308 ------- ------- ------- ------- -- Referra l Dominick /Jovanni/ HAO AYERS 07/[address] [place] [address])([facility] Intern[facility] Medicin e Tm) [address] [place] [address] [facility])([facility] ) TELE CONSULT [id number] Notes Entered by: Anjel BAIG 26 Jul 2016 1425 ------- ------- ------- ------- -- CT results CHRISTOPHE BAIG 07/[address] [place] [address])([facility] Intern[facility] Medicin [facility] Tm) [address] [place] [address])([facility] ) TELE CONSULT [id number] Notes Entered by: LAMAR LI 05 Aug 2016 1537 ------- ------- ------- ------- -- Med Rere / Jovanni / - sgj PASQUALE MEMBRENO 08/05 Referred for Appointment [address] [place] [address] [facility])([facility] Intern[facility] Medicin e Tm) [address] [place] [address])([facility] ) OUTPATIENT [id number] f/u labs, meds CHRISTOPHE BAIG 08/22 Released w/o Limitations [address] [place] [address])([facility] Intern[facility] l Medicin e Tm) [address] [place] [address])([facility] ) OUTPATIENT [id number] F/U PFT's CHRISTOPHE BAIG 09/09 Released w/o Limitations [address] [place] [address])([facility] Intern[facility] Medicin e Tm) [address] [place] [address])([facility] ) TELE CONSULT [id number] Notes Entered by: FARHAN LAFLEUR 13 Sep 2016 1127 ------- ------- ------- ------- -- Network Results Pulmona ry 7 CHRISTOPHE MARCUM 09/[address] [place] [address] [facility])([facility] cott Interna l Medicin e Tm) [address] [place] [address])([facility] ) TELE CONSULT [id number] Notes Entered by: DEON SCHAFFER 02 Oct 2016 0848 ------- ------- ------- ------- -- [place] / HAO AYERS 10/[address] [place] [address])([facility] Interna l Medicin e Tm) [address] [place] [address])([facility] ) TELE CONSULT [id number] Notes Entered by: RANDY SCOTT 04 Oct 2016 0951 ------- ------- ------- ------- -- Network results Cardiol ogy 7 CHRISTOPHE BAIG 10/[address] [place] [address])([facility] cott Interna l Medicin e Tm) [address] [place] [address])([facility] ) TELE CONSULT [id number] Notes Entered by: Hortencia RÍOS 07 Oct 2016 1112 ------- ------- ------- ------- -- Anesthe siology - Pain Managem ent Referra bassam Jernigan / Jovanni/Cosme [id number] - ajHAO Jackson 10/[address] [place] [address])([facility]) [address] [place] [address])([facility] ) TELE CONSULT [id number] Notes Entered by: RANDY SCOTT 15 Oct 2016 0918 ------- ------- ------- ------- -- Network results Cardiol ogy 7 CHRISTOPHE ORTIZ 10/[address] [place] [address])([facility] Intern[facility] Medic[facility] Tm) [address] [place] [address])([facility] Tm) TELE CONSULT [id number] Notes Entered by: JOSE MEDRANO 18 Oct 2016 0829 ------- ------- ------- ------- -- Network Results -CARDIO LOGY 10/08/16 LEXISCA N STRESS TEST [facility] CHRISTOPHE BAIG 10/[address] [place] [address])([facility] Intern[facility]) [address] [place] [address])([facility] ) TELE CONSULT [id number] Notes Entered by: JOSE MEDRANO 31 Oct 2016 1406 ------- ------- ------- ------- -- Network Results -UROLOG Y 10/22/16 [facility] CHRISTOPHE BAIG 10/[address] [place] [address])([facility]) [address] [place] [address])([facility] ) TELE CONSULT [id number] Notes Entered by: MASON ERVIN 31 Oct 2016 1407 ------- ------- ------- ------- -- Network results Urology 017 [facility] CHRISTOPHE BAIG 10/[address] [place] [address])([facility]) [address] [place] [address])([facility] ) TELE CONSULT [id number] Notes Entered by: JOSE MEDRANO 06 Nov 2016 0809 ------- ------- ------- ------- -- Network Results -CARDIO LOGY 10/21/16 [facility] CHRISTOPHE BAIG 11/[address] [place] [address])([facility]) [address] [place] [address])([facility] ) TELE CONSULT [id number] Notes Entered by: JULIENNE IVY 11 Nov 2016 1132 ------- ------- ------- ------- -- Philip Jernigan /Jovanni/ /JULIÁN Dickey lm 11/[address] [place] [address])([facility]) [address] [place] [address])([facility] ) TELE CONSULT [id number] Notes Entered by: JOSE MEDRANO 29 Nov 2016 1311 ------- ------- ------- ------- -- Network Results -CARDIO LOGY 11/19/16 [facility] CHRISTOPHE BAIG 11/[address] [place] [address])([facility] Tm) [address] [place] [address])([facility] ) TELE CONSULT [id number] Notes Entered by: JOSE MEDRANO 16 Dec 2016 1451 ------- ------- ------- ------- -- Network Results -UROLOG Y 10/22/16 [facility] CHRISTOPHE BAIG 12/[address] [place] [address])([facility]) [address] [place] [address])([facility] ) TELE CONSULT [id number] Notes Entered by: JULIENNE IVY 20 Dec 2016 1434 ------- ------- ------- ------- -- Lab lisette/Gabriel bowen/288- 9908/HAO Russell 12/[address] [place] [address])([facility]) [address] [place] [address])([facility] ) TELE CONSULT [id number] Notes Entered by: LAMAR LI 26 Dec 2016 1018 ------- ------- ------- ------- -- F/U after [facility] Visit / Retro Referra l Request / Jovanni / - sgj CHRISTOPHE BAIG 12/[address] [place] [address])([facility]) [address] [place] [address])([facility] Tm) TELE CONSULT [id number] Notes Entered by: JOSE MEDRANO 27 Dec 2016 0648 ------- ------- ------- ------- -- Network Results -UROLOG Y 12/17/16 SD[facility] CHRISTOPHE BAIG 12/[address] [place] [address])([facility]) [address] [place] [address])([facility] ) OUTPATIENT [id number] Dionisio faye f/u from [facility] CHRISTOPHE BAIG 01/06 Released w/o Limitations [address] [place] [address])([facility]) [address] [place] [address])([facility] ) TELE CONSULT [id number] Notes Entered by: AMANDA STEWART 22 Jan 2017906 ------- ------- ------- ------- -- Sx: Left arm/ismael ulder pain - Jovanni - 618-288 -9908/6 [id number]- [id number] - tsg* HAO AYERS 01/[address] [place] [address] Humberto [facility])([facility] Intern[facility] Medic[facility] Tm) [address] [place] [address])([facility] ) OUTPATIENT [id number] Shoulde r Pain per CHRISTOPHE Stout 01/27 Released w/o Limitations [address] [place] [address])([facility]) [address] [place] [address])([facility] ) TELE CONSULT [id number] Notes Entered by: Lizy ALANIZ 05 Feb 2017930 ------- ------- ------- ------- -- [employer] req. Referra banegas 7 appt ([facility]) HAO AYERS 02/[address] [place] [address])([facility]) [address] [place] [address])([facility] ) OUTPATIENT [id number] f/u MRI possibl e injecti on per CHRISTOPHE Black 02/09 Released w/o Limitations [address] [place] [address])([facility]) [address] [place] [address])([facility] ) TELE CONSULT [id number] Notes Entered by: YOVANNY SHARIF 12 Feb 2017 0844 ------- ------- ------- ------- -- Network results Audiolo gy 7 CHRISTOPHE SCHMITZ 02/[address] [place] [address])([facility]) [address] [place] [address])([facility] ) TELE CONSULT [id number] Notes Entered by: Lizy ALANIZ 14 Feb 2017 0830 ------- ------- ------- ------- -- [employer] request matt banegas 7 ([facility]) HAO AYERS 02/[address] [place] [address])([facility]) [address] [place] [address])([facility] ) TELE CONSULT [id number] Notes Entered by: Lizy ALANIZ 27 Mar 2017 1441 ------- ------- ------- ------- -- Questrodrick n about a bump on hand ([facility]) HAO AYERS 03/[address] [place] [address])([facility]) [address] [place] [address])([facility] ) TELE CONSULT [id number] Notes Entered by: YANNA GARBER 11 Apr 2017 0939 ------- ------- ------- ------- -- Network results Dermato logy 7 BNS CHRISTOPHE BAIG 04/[address] [place] [address])([facility]) [address] [place] [address])([facility] ) TELE CONSULT [id number] Notes Entered by: DEON SCHAFFER 14 May 2017 1546 ------- ------- ------- ------- -- Med Rere /Jovanni/ YOSEF BARRAZA 05/14 Referred for Appointment [address] [place] [address])([facility]) [address] [place] [address])([facility] ) TELE CONSULT [id number] Notes Entered by: Lizy ALANIZ 23 May 2017 1432 ------- ------- ------- ------- -- Sleep study referra banegas appoint ment 06/02/17 (gwp) HAO AYERS 05/[address] [place] [address])([facility]) [address] [place] [address])(Opt ometry) OUTPATIENT [id number] Notes Entered by: CHARITY NORTON 27 May 2017 1420 ------- ------- ------- ------- -- Glasses order CYNDIE NORTON 05/27 Released w/o Limitations [address] [place] [address])(O ptometr y) [address] [place] [address])([facility] ) TELE CONSULT [id number] Notes Entered by: VERONICA WALTON 02 Jun 2017 0938 ------- ------- ------- ------- -- Med Usman Yue 618-288 -9908/5 [phone] [facility] HAO AYERS 06/02 [facility])([facility] Intern[facility] Medicin [facility] Tm) [facility])([facility] ) TELE CONSULT [id number] Notes Entered by: LAMAR LI 11 Aug 2017 1426 ------- ------- ------- ------- -- Med Renewal / Yue / [phone] / [phone] 8 - sgj HAO AYERS 08/11 [facility])([facility] Intern[facility] Medicin [facility] Tm) [facility])([facility] ) TELE CONSULT [id number] Notes Entered by: AMANDA STEWART 24 Sep 2017 0926 ------- ------- ------- ------- -- Rx renewal - Yue - [facility] HAO AYERS 09/24 [facility])([facility] Intern[facility] Medicin [facility] Tm) [address] [place] [address] Group [facility])([facility] ) TELE CONSULT [id number] Notes Entered by: CHEY WASHINGTON 31 Oct 2017 0831 ------- ------- ------- ------- -- Med Renewal Request / Preethi / BRISEIDA# [phone] - MONICA Mcknight 10/31 Referred for Appointment [facility])([facility] Intern[facility] Medicin [facility] Tm) [address] [place] [address])([facility] ) OUTPATIENT [id number] annual visit/D M f/u JADA TURNER 11/06 Released w/o Limitations [facility]to [facility] Intern[facility] l Medicin e Tm) [address] [place] [address])([facility] Tm) TELE CONSULT [id number] Notes Entered by: BRISEIDA JENSEN 24 Nov 2017 1336 ------- ------- ------- ------- -- Ref discrep lashawn/dl ight/61 8.288.9 908 vandana MCKAYHAO ZAPATA Hortencia 11/24 Released to [facility] [address] [place] [address])([facility]) [address] [place] [address])([facility]) TELE CONSULT [id number] Notes Entered by: JULIENNE IVY 31 Dec 2017 1254 ------- ------- ------- ------- -- STAT Philip Higgins/05 Jan 2018/Dl wilde/31 4.362.7 802/[facility] PASQUALE MEMBRENO 12/31 Referred for Appointment [address] [place] [address])([facility] T[facility]) [address] [place] [address])([facility]) TELE CONSULT [id number] Notes Entered by: ZAHIRA XIE 01 Jan 2018 0944 ------- ------- ------- ------- -- PASQUALE Santos 01/01 Referred for Appointment [address] [place] [address])([facility]) [address] [place] [address])([facility]) TELE CONSULT [id number] Notes Entered by: JULIENNE IVY 06 Jan 2018 0834 ------- ------- ------- ------- -- Referra bassam Jernigan /Yue // clm CRYS MCKNIGHT 01/06 Released to [facility] [employer] [address] [place] [address])([facility] Tm) [address] [place] [address])([facility] ) TELE CONSULT [id number] Notes Entered by: DEON SCHAFFER 19 Jan 2018 1011 ------- ------- ------- ------- -- Med Renewal s/Maribel ruelas/ HAO AYERS 01/19 Medication Refill Forwarded [address] [place] [address])([facility]) [address] [place] [address])([facility]) OUTPATIENT [id number] 6 month DM F/U ANASTACIO PARTIDA 05/08 Released w/o Limitations [address] [place] [address])([facility]) [address] [place] [address])([facility] ) TELE CONSULT [id number] Notes Entered by: Lizy ALANIZ 19 May 2018 1040 ------- ------- ------- ------- -- ( 2) referra ls optomet ry and pain mgt / gwp HAO AYERS 05/19 Other Not Elsewhere Classified [address] [place] [address])([facility]) [address] [place] [address])([facility] ) TELE CONSULT [id number] Notes Entered by: HARRIETT NIETO RET 01 Jun 2018 1107 ------- ------- ------- ------- -- Ref Renewal Pain Managem ent/Kni t/618 .288.99 08 HAO AYERS 06/01 Other Not Elsewhere Classified [address] [place] [address])([facility]) [address] [place] [address])([facility] ) TELE CONSULT [id number] Notes Entered by: JESSICA MERCEDES 16 Jun 2018 1108 ------- ------- ------- ------- -- ER follow up/Orth o referra bassam/HAO Pollock 06/16 Released w/o Limitations [address] [place] [address])([facility]) [address] [place] [address])(Opt ometry) OUTPATIENT [id number] Notes Entered by: LILLY PARISH 22 Jun 2018 1402 ------- ------- ------- ------- -- Glasses Ordered FUNMI GANDHI 06/22 Released w/o Limitations [address] [place] [address])(O ptometr y) [address] [place] [address])([facility] ) TELE CONSULT [id number] Notes Entered by: DEON SCHAFFER 29 Jun 2018 1023 ------- ------- ------- ------- -- STAT Referra banegas Request (appt 01 July)/ Yue/ PASQUALE MEMBRENO 06/29 Referred for Appointment [address] [place] [address])([facility]) [address] [place] [address])([facility]) OUTPATIENT [id number] Pain in left knee GÓMEZ CORREA Hortencia 07/01 Released w/o Limitations [address] [place] [address])(V A - Orthope dics) [address] [place] [address])([facility] ) TELE CONSULT [id number] Notes Entered by: LAMAR LI 06 Jul 2018 1558 ------- ------- ------- ------- -- Cardiol ogy Referra bassam Pulidoio ns - Possibl y Out of Network / Yue/ [phone] 8 - sgj PASQUALE MEMBRENO 07/06 Other Not Elsewhere Classified [address] [place] [address])([facility] Intern[facility] Medicin [facility] Tm) [address] [place] [address])([facility] Internal Medicine Tm) TELE CONSULT [id number] 3 Notes Entered by: LAMAR LI 08 Jul 2018 0933 ------- ------- ------- ------- -- Referra bassam Renewal - Appt 22 July / [facility] WEEKSPASQUALE Bassam 07/08 Other Not Elsewhere Classified [facility] Interna l Medicin e Tm[facility])([facility] ) TELE CONSULT [id number] Notes Entered by: CHEY WASHINGTON 16 Jul 2018 1418 ------- ------- ------- ------- -- Anesthe siology Referra banegas Amendme nt / [facility] - HAO Carpio 07/16 Other Not Elsewhere Classified [facility])([facility] cott Interna l Medicin e Tm) [facility])([facility] ) TELE CONSULT [id number] Notes Entered by: AMANDA STEWART 27 Jul 2018 1450 ------- ------- ------- ------- -- Amend philip Turner - HAO Grimm 07/27 Other Not Elsewhere Classified [facility])([facility] Interna l Medicin e Tm) [facility])([facility] ) TELE CONSULT [id number] Notes Entered by: AMANDA STEWART 03 Aug 2018 1343 ------- ------- ------- ------- -- F/U spec - Turner - [id number] -9908/6 [phone] - HAO Grimm 08/03 Referred for Appointment [facility] Intern[facility] l Medicin e Tm) [address] [place] [address] Group [facility])([place] - Orthopedi ) OUTPATIENT [id number] L) knee GÓMEZ CORREA A 08/12 Released w/o Limitations [address] [place] [address] Group [place])(V A - Orthope dics) [address] [place] [address] [facility]to [facility])([facility] ) TELE CONSULT [id number] Notes Entered by: KARLOS SMITH 12 Aug 2018 1422 ------- ------- ------- ------- -- Number of visits on pain managem ent referCHANDLER Bansal N 08/12 Released to [facility] [address] [place] [address] Group [facility])(S cott Interna l Medicin e Tm) [address] [place] [address] [facility])([facility] ) TELE CONSULT [id number] Notes Entered by: AMANDA STEWART 21 Aug 2018 0957 ------- ------- ------- ------- -- Amend philip Turner - - tsg CHANDLER SMITH N 08/21 Released to [employer] [address] [place] [address] Group [facility])(S cott Interna l Medicin e Tm) [address] [place] [address] [facility])([facility] ) TELE CONSULT [id number] Notes Entered by: LAMAR LI 21 Aug 2018 1040 ------- ------- ------- ------- -- Med Rere / Yue / - sgj JOSE SAN 08/21 Medication Refill Forwarded [address] [place] [address] Group [facility])([facility] cott Interna l Medicin e Tm) [address] [place] [address] [facility]to [facility])([facility] ) OUTPATIENT [id number] To discuss Hepatic Steatos is JADA TURNER 08/24 Released w/o Limitations [address] [place] [address] Group [facility])([facility] cott Interna l Medicin e Tm) [address] [place] [address])([facility] ) TELE CONSULT [id number] Notes Entered by: Bob CLAROS 23 Sep 2018 1550 ------- ------- ------- ------- -- Network results Cardiol ogy 019 JADA BUCKNER 09/[address] [place] [address])([facility] Intern[facility] l Medicin e Tm) [address] [place] [address])([facility]) OUTPATIENT [id number] 6 f/u knee GÓMEZ CORREA 09/30 Released w/o Limitations [address] [place] [address])(V A - Orthope dics) [address] [place] [address])([facility] ) TELE CONSULT [id number] Notes Entered by: CHEY WASHINGTON 09 Oct 2018 0952 ------- ------- ------- ------- -- Med Renewal Request / Yue/ 618)-[id number] - ajh v HAO AYERS 10/09 Medication Refill Forwarded [address] [place] [address])([facility] Intern[facility] l Medicin e Tm) [address] [place] [address])([facility]) OUTPATIENT [id number] 6 MONTH DM F/U ANASTACIO PARTIDA 11/06 Released w/o Limitations [address] [place] [address])([facility]) [address] [place] [address])([facility] ) TELE CONSULT [id number] Notes Entered by: DEON SCHAFFER 11 Nov 2018 0734 ------- ------- ------- ------- -- Med Renewal /Yue / HAO AYERS 11/11 Medication Refill Forwarded [address] [place] [address])([facility] Interna l Medicin e Tm) [address] [place] [address])([facility] ) TELE CONSULT [id number] Notes Entered by: HARRIETT NIETO RET 14 Dec 2018 0859 ------- ------- ------- ------- -- Rx Renewal /Turner / prc HAO AYERS 12/14 Medication Refill Forwarded [address] [place] [address])([facility] Interna l Medicin e Tm) [address] [place] [address])([facility] ) TELE CONSULT [id number] Notes Entered by: LAMAR LI 29 Dec 2018 0754 ------- ------- ------- ------- -- Med Renewal / Turner / - sgj HAO AYERS 12/29 Medication Refill Forwarded [address] [place] [address])([facility] Interna l Medicin e Tm) [address] [place] [address])([facility]) OUTPATIENT [id number] 9 6 MONTH DM F/U ANASTACIO PARTIDA 05/06 Released w/o Limitations [address] [place] [address])([facility]) [address] [place] [address])([facility] ) OUTPATIENT [id number] pt wants to see pcm before switchi ng to medicar e for med refill ROD NATHAN 05/21 Released w/o Limitations [address] [place] [address])([facility] cott Interna l Medicin e Tm) [address] [place] [address])([facility] ) TELE CONSULT [id number] Notes Entered by: AMANDA STEWART 07 Jun 2019 1246 ------- ------- ------- ------- -- Medicat ion dose? - Chamber s - - tsg HAO AYERS 06/07 Medication Refill Forwarded [address] [place] [address])([facility] Intern[facility] l Medicin e Tm) [address] [place] [address])([facility] ) TELE CONSULT [id number] Notes Entered by: Lizy ALANIZ 07 Jun 2019 1542 ------- ------- ------- ------- -- referra l request for an appt on 06/14/19 / HAO Garcia 06/07 Other Not Elsewhere Classified [address] [place] [address])([facility] Interna l Medicin e Tm) [address] [place] [address])(Opt ometry) OUTPATIENT [id number] Notes Entered by: LILLY PARISH 28 Jun 2019 1429 ------- ------- ------- ------- -- Glasses Ordered LILLY PARISH 06/27 Released w/o Limitations [address] [place] [address])(O ptometr y) [address] [place] [address])([facility] ) TELE CONSULT [id number] Notes Entered by: DEON SCHAFFER 05 Jul 2019 1059 ------- ------- ------- ------- -- Referra l Renewal Request (appt 18 July)/ Denny swan/ (HAO Duenas 07/04 Other Not Elsewhere Classified [address] [place] [address])([facility] Interna l Medicin e Tm) [address] [place] [address])([facility] ) TELE CONSULT [id number] Notes Entered by: DEON SCHAFFER 07 Jul 2019 1029 ------- ------- ------- ------- -- Med Renewal /Allyssa frank/618. 288.990 8 HAO AYERS 07/06 Medication Refill Forwarded [address] [place] [address])([facility] cott Interna l Medicin e Tm) [address] [place] [address])([facility] Internal Medicine Tm) TELE CONSULT [id number] Notes Entered by: CHEY WASHINGTON 16 Jul 2019 1247 ------- ------- ------- ------- -- Med Renewal Request / Denny s/ - HAO Carpio 07/15 Medication Refill Forwarded [address] [place] [address])([facility] Interna l Medicin e Tm) [address] [place] [address])([facility] [facility]) TELE CONSULT [id number] Notes Entered by: BRUCE SHAHID 12 Oct 2019 1528 ------- ------- ------- ------- -- Network results OPTOMET RY 06/14/19 ROD HADDAD 10/[address] [place] [address])(S cott Interna l Medicin e Tm) [address] [place] [address])(Opt ometry) OUTPATIENT [id number] 6 Notes Entered by: LILLY PARISH 06 Mar 2021 1120 ------- ------- ------- ------- -- Glasses Ordered LILLY PARISH 03/06 Released w/o Limitations [address] [place] [address])(O ptometr y) Procedures Combined list of: 1) [facility], not all [facility] non-surgical procedures are included; 2) All procedures from the Department of Defense facilities. Procedure Procedure Type Code Date Perfomer Comments Sourc e No data available for this section Ambulatory Pharmacy FITTING OF SPECTACLES, EXCEPT FOR APHAKIA; MONOFOCAL 2020 DoD FITTING OF SPECTACLES, EXCEPT FOR APHAKIA; MONOFOCAL 2019 [facility] MEDICATION THERAPY MGT SERVICE(S) PROVIDED,A PHARMACIST,JOSHUA,FACE- TO-FACE W PATIENT,WITH ASSESS & INTERVENE IF PROVIDED;EA ADDITION 15 MINUTES (LIST SEPARATELY IN ADDITION TO CODE FOR PRIM SERVICE) 2019 DoD MEDICATION THERAPY MGT SERVICE(S) PROVIDED,A PHARMACIST,MICHAELIV,FACE- TO-FACE W PATIENT,WITH ASSESS & INTERVENE IF PROVIDED;EA ADDITION 15 MINUTES (LIST SEPARATELY IN ADDITION TO CODE FOR PRIM SERVICE) 2018 DoD TELE ASSESS & MGT SRV PROV QUAL NONPHYS HLTH CARE PRO TO EST PAT,PARENT,GUARD NOT ORIG REL ASSESS & MGT SRV PROV W/IN PREV 7 DAYS NOR LEAD ASSESS & MGT SRV/PX W/IN NXT 24H/SOON APT; 11-20 MIN MED DIS 2018 DoD TELE ASSESS & MGT SRV PROV QUAL NONPHYS HLTH CARE PRO TO EST PAT,PARENT,GUARD NOT ORIG REL ASSESS & MGT SRV PROV W/IN PREV 7 DAYS NOR LEAD ASSESS & MGT SRV/PX W/IN NXT 24 HR/SOON APT;5-10 MIN MED DIS 2018 DoD TELE ASSESS & MGT SRV PROV QUAL NONPHYS HLTH CARE PRO TO EST PAT,PARENT,GUARD NOT ORIG REL ASSESS & MGT SRV PROV W/IN PREV 7 DAYS NOR LEAD ASSESS & MGT SRV/PX W/IN NXT 24 HR/SOON APT;5-10 MIN MED DIS 2018 DoD KNEE ORTHOSIS, ELASTIC WITH JOINTS, PREFABRICATED, [id number] 2018 DoD FITTING OF SPECTACLES, EXCEPT FOR APHAKIA; MONOFOCAL 2018 DoD MEDICATION THERAPY MGT SERVICE(S) PROVIDED,A PHARMACIST,MICHAELIV,FACE- TO-FACE W PATIENT,WITH ASSESS & INTERVENE IF PROVIDED;EA ADDITION 15 MINUTES (LIST SEPARATELY IN ADDITION TO CODE FOR PRIM SERVICE) 2018 DoD TELE ASSESS & MGT SRV PROV QUAL NONPHYS HLTH CARE PRO TO EST PAT,PARENT,GUARD NOT ORIG REL ASSESS & MGT SRV PROV W/IN PREV 7 DAYS NOR LEAD ASSESS & MGT SRV/PX W/IN NXT 24 HR/SOON APT;5-10 MIN MED DIS 2017 DoD TELE ASSESS & MGT SRV PROV QUAL NONPHYS HLTH CARE PRO TO EST PAT,PARENT,GUARD NOT ORIG REL ASSESS & MGT SRV PROV W/IN PREV 7 DAYS NOR LEAD ASSESS & MGT SRV/PX W/IN NXT 24 HR/SOON APT;5-10 MIN MED DIS 2017 DoD TELE ASSESS & MGT SRV PROV QUAL NONPHYS HLTH CARE PRO TO EST PAT,PARENT,GUARD NOT ORIG REL ASSESS & MGT SRV PROV W/IN PREV 7 DAYS NOR LEAD ASSESS & MGT SRV/PX W/IN NXT 24 HR/SOON APT;5-10 MIN MED DIS 2017 DoD TELE ASSESS & MGT SRV PROV QUAL NONPHYS HLTH CARE PRO TO EST PAT,PARENT,GUARD NOT ORIG REL ASSESS & MGT SRV PROV W/IN PREV 7 DAYS NOR LEAD ASSESS & MGT SRV/PX W/IN NXT 24 HR/SOON APT;5-10 MIN MED DIS 2017 DoD TELE ASSESS & MGT SRV PROV QUAL NONPHYS HLTH CARE PRO TO EST PAT,PARENT,GUARD NOT ORIG REL ASSESS & MGT SRV PROV W/IN PREV 7 DAYS NOR LEAD ASSESS & MGT SRV/PX W/IN NXT 24 HR/SOON APT;5-10 MIN MED DIS 2017 DoD TELE ASSESS & MGT SRV PROV QUAL NONPHYS HLTH CARE PRO TO EST PAT,PARENT,GUARD NOT ORIG REL ASSESS & MGT SRV PROV W/IN PREV 7 DAYS NOR LEAD ASSESS & MGT SRV/PX W/IN NXT 24 HR/SOON APT;5-10 MIN MED DIS 2017 DoD TELE ASSESS & MGT SRV PROV QUAL NONPHYS HLTH CARE PRO TO EST PAT,PARENT,GUARD NOT ORIG REL ASSESS & MGT SRV PROV W/IN PREV 7 DAYS NOR LEAD ASSESS & MGT SRV/PX W/IN NXT 24 HR/SOON APT;5-10 MIN MED DIS 2017 DoD TELE ASSESS & MGT SRV PROV QUAL NONPHYS HLTH CARE PRO TO EST PAT,PARENT,GUARD NOT ORIG REL ASSESS & MGT SRV PROV W/IN PREV 7 DAYS NOR LEAD ASSESS & MGT SRV/PX W/IN NXT 24 HR/SOON APT;5-10 MIN MED DIS 2017 DoD FITTING OF SPECTACLES, EXCEPT FOR APHAKIA; BIFOCAL 2017 DoD TELE ASSESS & MGT SRV PROV QUAL NONPHYS HLTH CARE PRO TO EST PAT,PARENT,GUARD NOT ORIG REL ASSESS & MGT SRV PROV W/IN PREV 7 DAYS NOR LEAD ASSESS & MGT SRV/PX W/IN NXT 24 HR/SOON APT;5-10 MIN MED DIS 2017 DoD TELE ASSESS & MGT SRV PROV QUAL NONPHYS HLTH CARE PRO TO EST PAT,PARENT,GUARD NOT ORIG REL ASSESS & MGT SRV PROV W/IN PREV 7 DAYS NOR LEAD ASSESS & MGT SRV/PX W/IN NXT 24 HR/SOON APT;5-10 MIN MED DIS 2017 DoD TELE ASSESS & MGT SRV PROV QUAL NONPHYS HLTH CARE PRO TO EST PAT,PARENT,GUARD NOT ORIG REL ASSESS & MGT SRV PROV W/IN PREV 7 DAYS NOR LEAD ASSESS & MGT SRV/PX W/IN NXT 24 HR/SOON APT;5-10 MIN MED DIS 2016 DoD ARTHROCENTESIS, ASPIRATION AND/OR INJECTION, MAJOR JOINT OR BURSA (EG, SHOULDER, HIP, KNEE, SUBACROMIAL BURSA); WITHOUT ULTRASOUND GUIDANCE 2016 DoD TELE ASSESS & MGT SRV PROV QUAL NONPHYS HLTH CARE PRO TO EST PAT,PARENT,GUARD NOT ORIG REL ASSESS & MGT SRV PROV W/IN PREV 7 DAYS NOR LEAD ASSESS & MGT SRV/PX W/IN NXT 24 HR/SOON APT;5-10 MIN MED DIS 2016 DoD TELE ASSESS & MGT SRV PROV QUAL NONPHYS HLTH CARE PRO TO EST PAT,PARENT,GUARD NOT ORIG REL ASSESS & MGT SRV PROV W/IN PREV 7 DAYS NOR LEAD ASSESS & MGT SRV/PX W/IN NXT 24 HR/SOON APT;5-10 MIN MED DIS 2016 DoD TELE ASSESS & MGT SRV PROV QUAL NONPHYS HLTH CARE PRO TO EST PAT,PARENT,GUARD NOT ORIG REL ASSESS & MGT SRV PROV W/IN PREV 7 DAYS NOR LEAD ASSESS & MGT SRV/PX W/IN NXT 24 HR/SOON APT;5-10 MIN MED DIS 2016 DoD TELE ASSESS & MGT SRV PROV QUAL NONPHYS HLTH CARE PRO TO EST PAT,PARENT,GUARD NOT ORIG REL ASSESS & MGT SRV PROV W/IN PREV 7 DAYS NOR LEAD ASSESS & MGT SRV/PX W/IN NXT 24 HR/SOON APT;5-10 MIN MED DIS 2016 DoD TELE ASSESS & MGT SRV PROV QUAL NONPHYS HLTH CARE PRO TO EST PAT,PARENT,GUARD NOT ORIG REL ASSESS & MGT SRV PROV W/IN PREV 7 DAYS NOR LEAD ASSESS & MGT SRV/PX W/IN NXT 24 HR/SOON APT;5-10 MIN MED DIS 2016 DoD TELE ASSESS & MGT SRV PROV QUAL NONPHYS HLTH CARE PRO TO EST PAT,PARENT,GUARD NOT ORIG REL ASSESS & MGT SRV PROV W/IN PREV 7 DAYS NOR LEAD ASSESS & MGT SRV/PX W/IN NXT 24 HR/SOON APT;5-10 MIN MED DIS 2016 DoD TELE ASSESS & MGT SRV PROV QUAL NONPHYS HLTH CARE PRO TO EST PAT,PARENT,GUARD NOT ORIG REL ASSESS & MGT SRV PROV W/IN PREV 7 DAYS NOR LEAD ASSESS & MGT SRV/PX W/IN NXT 24 HR/SOON APT;5-10 MIN MED DIS 2016 DoD TELE ASSESS & MGT SRV PROV QUAL NONPHYS HLTH CARE PRO TO EST PAT,PARENT,GUARD NOT ORIG REL ASSESS & MGT SRV PROV W/IN PREV 7 DAYS NOR LEAD ASSESS & MGT SRV/PX W/IN NXT 24 HR/SOON APT;5-10 MIN MED DIS 2016 DoD TELE ASSESS & MGT SRV PROV QUAL NONPHYS HLTH CARE PRO TO EST PAT,PARENT,GUARD NOT ORIG REL ASSESS & MGT SRV PROV W/IN PREV 7 DAYS NOR LEAD ASSESS & MGT SRV/PX W/IN NXT 24 HR/SOON APT;5-10 MIN MED DIS 2016 DoD TELE ASSESS & MGT SRV PROV QUAL NONPHYS HLTH CARE PRO TO EST PAT,PARENT,GUARD NOT ORIG REL ASSESS & MGT SRV PROV W/IN PREV 7 DAYS NOR LEAD ASSESS & MGT SRV/PX W/IN NXT 24 HR/SOON APT;5-10 MIN MED DIS 2015 DoD TELE ASSESS & MGT SRV PROV QUAL NONPHYS HLTH CARE PRO TO EST PAT,PARENT,GUARD NOT ORIG REL ASSESS & MGT SRV PROV W/IN PREV 7 DAYS NOR LEAD ASSESS & MGT SRV/PX W/IN NXT 24 HR/SOON APT;5-10 MIN MED DIS 2015 DoD TELE ASSESS & MGT SRV PROV QUAL NONPHYS HLTH CARE PRO TO EST PAT,PARENT,GUARD NOT ORIG REL ASSESS & MGT SRV PROV W/IN PREV 7 DAYS NOR LEAD ASSESS & MGT SRV/PX W/IN NXT 24 HR/SOON APT;5-10 MIN MED DIS 2015 DoD TELE ASSESS & MGT SRV PROV QUAL NONPHYS HLTH CARE PRO TO EST PAT,PARENT,GUARD NOT ORIG REL ASSESS & MGT SRV PROV W/IN PREV 7 DAYS NOR LEAD ASSESS & MGT SRV/PX W/IN NXT 24 HR/SOON APT;5-10 MIN MED DIS 2015 DoD TELE ASSESS & MGT SRV PROV QUAL NONPHYS HLTH CARE PRO TO EST PAT,PARENT,GUARD NOT ORIG REL ASSESS & MGT SRV PROV W/IN PREV 7 DAYS NOR LEAD ASSESS & MGT SRV/PX W/IN NXT 24 HR/SOON APT;5-10 MIN MED DIS 2015 DoD FITTING OF SPECTACLES, EXCEPT FOR APHAKIA; BIFOCAL 2014 DoD TELE ASSESS & MGT SRV PROV QUAL NONPHYS HLTH CARE PRO TO EST PAT,PARENT,GUARD NOT ORIG REL ASSESS & MGT SRV PROV W/IN PREV 7 DAYS NOR LEAD ASSESS & MGT SRV/PX W/IN NXT 24 HR/SOON APT;5-10 MIN MED DIS 2013 DoD TELE ASSESS & MGT SRV PROV QUAL NONPHYS HLTH CARE PRO TO EST PAT,PARENT,GUARD NOT ORIG REL ASSESS & MGT SRV PROV W/IN PREV 7 DAYS NOR LEAD ASSESS & MGT SRV/PX W/IN NXT 24 HR/SOON APT;5-10 MIN MED DIS 2013 DoD TELE ASSESS & MGT SRV PROV QUAL NONPHYS HLTH CARE PRO TO EST PAT,PARENT,GUARD NOT ORIG REL ASSESS & MGT SRV PROV W/IN PREV 7 DAYS NOR LEAD ASSESS & MGT SRV/PX W/IN NXT 24 HR/SOON APT;5-10 MIN MED DIS 2013 DoD ARTHROCENTESIS, ASPIRATION AND/OR INJECTION, INTERMEDIATE JOINT OR BURSA (EG, TEMPOROMANDIBULAR, ACROMIOCLAVICULAR, WRIST, ELBOW OR ANKLE, OLECRANON BURSA); WITHOUT ULTRASOUND GUIDANCE 2013 DoD TELE ASSESS & MGT SRV PROV QUAL NONPHYS HLTH CARE PRO TO EST PAT,PARENT,GUARD NOT ORIG REL ASSESS & MGT SRV PROV W/IN PREV 7 DAYS NOR LEAD ASSESS & MGT SRV/PX W/IN NXT 24 HR/SOON APT;5-10 MIN MED DIS 2013 DoD TELE ASSESS & MGT SRV PROV QUAL NONPHYS HLTH CARE PRO TO EST PAT,PARENT,GUARD NOT ORIG REL ASSESS & MGT SRV PROV W/IN PREV 7 DAYS NOR LEAD ASSESS & MGT SRV/PX W/IN NXT 24 HR/SOON APT;5-10 MIN MED DIS 2013 DoD TELE ASSESS & MGT SRV PROV QUAL NONPHYS HLTH CARE PRO TO EST PAT,PARENT,GUARD NOT ORIG REL ASSESS & MGT SRV PROV W/IN PREV 7 DAYS NOR LEAD ASSESS & MGT SRV/PX W/IN NXT 24 HR/SOON APT;5-10 MIN MED DIS 2013 DoD TELE ASSESS & MGT SRV PROV QUAL NONPHYS HLTH CARE PRO TO EST PAT,PARENT,GUARD NOT ORIG REL ASSESS & MGT SRV PROV W/IN PREV 7 DAYS NOR LEAD ASSESS & MGT SRV/PX W/IN NXT 24H/SOON APT; 21-30 MIN MED DIS 2013 DoD TELE ASSESS & MGT SRV PROV QUAL NONPHYS HLTH CARE PRO TO EST PAT,PARENT,GUARD NOT ORIG REL ASSESS & MGT SRV PROV W/IN PREV 7 DAYS NOR LEAD ASSESS & MGT SRV/PX W/IN NXT 24 HR/SOON APT;5-10 MIN MED DIS 2012 DoD TELE ASSESS & MGT SRV PROV QUAL NONPHYS HLTH CARE PRO TO EST PAT,PARENT,GUARD NOT ORIG REL ASSESS & MGT SRV PROV W/IN PREV 7 DAYS NOR LEAD ASSESS & MGT SRV/PX W/IN NXT 24 HR/SOON APT;5-10 MIN MED DIS 2012 DoD MEDICATION THERAPY MGT SERVICE(S) PROVIDED,A PHARMACIST,MICHAELIV,FACE- TO-FACE W PATIENT,WITH ASSESS & INTERVENE IF PROVIDED;EA ADDITION 15 MINUTES (LIST SEPARATELY IN ADDITION TO CODE FOR PRIM SERVICE) 2012 DoD DESTRUCT (EG, LASER SURGERY, ELECTROSURGERY, CRYOSURGERY, CHEMOSURGERY, SURGICAL CURETTEMENT), PREMALIGNANT LESIONS (EG, ACTINIC KERATOSES); 2ND THRU 14 LESIONS, EA (LIST SEP ADDITION CD, 1ST LESION) 2011 DoD MEDICATION THERAPY MGT SERVICE(S) PROVIDED,A PHARMACIST,INDIV,FACE- TO-FACE W PATIENT,WITH ASSESS & INTERVENE IF PROVIDED;EA ADDITION 15 MINUTES (LIST SEPARATELY IN ADDITION TO CODE FOR PRIM SERVICE) 2011 DoD FITTING OF SPECTACLES, EXCEPT FOR APHAKIA; BIFOCAL 2011 DoD MEDICATION THERAPY MGT SERVICE(S) PROVIDED,A PHARMACIST,INDIV,FACE- TO-FACE W PATIENT,WITH ASSESS & INTERVENE IF PROVIDED;EA ADDITION 15 MINUTES (LIST SEPARATELY IN ADDITION TO CODE FOR PRIM SERVICE) 2011 DoD TELE ASSESS & MGT SRV PROV QUAL NONPHYS HLTH CARE PRO TO EST PAT,PARENT,GUARD NOT ORIG REL ASSESS & MGT SRV PROV W/IN PREV 7 DAYS NOR LEAD ASSESS & MGT SRV/PX W/IN NXT 24H/SOON APT; 21-30 MIN MED DIS 2011 DoD REMOVAL IMPACTED CERUMEN REQUIRING INSTRUMENTATION, UNILATERAL 2009 DoD MEDICAL NUTRITION THERAPY; INITIAL ASSESSMENT AND INTERVENTION, INDIVIDUAL, [id number] WITH THE PATIENT, EACH 15 MINUTES 2009 DoD DIABETIC INDICATOR; RETINAL EYE EXAM, DILATED, BILATERAL 2009 DoD REMOVAL IMPACTED CERUMEN REQUIRING INSTRUMENTATION, UNILATERAL 2008 DoD INFLUENZA VIRUS VACCINE, TRIVALENT (IIV3), SPLIT VIRUS, 0.5 ML DOSAGE, FOR INTRAMUSCULAR USE 2007 DoD CARDIOVASCULAR STRESS TEST USING MAXIMAL OR SUBMAXIMAL TREADMILL OR BICYCLE EXERCISE,CONTINUOUS ELECTROCARDIOGRAPHIC MONITORING,AND/OR PHARMACOLOGICAL STRESS;W SUPERVISION,INTERPRETA TION AND REPORT 2007 DoD ELECTROCARDIOGRAM, ROUTINE ECG WITH AT LEAST 12 LEADS; TRACING ONLY, WITHOUT INTERPRETATION AND REPORT 2007 DoD HEARING AID CHECK; MONAURAL 2006 DoD REMOVAL IMPACTED CERUMEN REQUIRING INSTRUMENTATION, UNILATERAL 2006 DoD ELECTROACOUSTIC EVALUATION FOR HEARING AID; BINAURAL 2006 DoD HEARING AID EXAMINATION AND SELECTION; BINAURAL 2006 DoD REMOVAL IMPACTED CERUMEN REQUIRING INSTRUMENTATION, UNILATERAL 2006 DoD REMOVAL IMPACTED CERUMEN REQUIRING INSTRUMENTATION, UNILATERAL 2005 DoD REMOVAL IMPACTED CERUMEN REQUIRING INSTRUMENTATION, UNILATERAL 2004 DoD REMOVAL IMPACTED CERUMEN REQUIRING INSTRUMENTATION, UNILATERAL 2003 DoD SEDATION WITH OR WITHOUT ANALGESIA (CONSCIOUS SEDATION); INTRAVENOUS, INTRAMUSCULAR OR INHALATION 2003 DoD REMOVAL IMPACTED CERUMEN REQUIRING INSTRUMENTATION, UNILATERAL 2002 [facility] Medication Management By Pharmacist Each Additional 15 Min Medication Management By Pharmacist Each Additional 15 Min [id number] 2018 ANASTACIO PARTIDA Med Management By Pharmacist Initial 15 Min Estab Patient Med Management By Pharmacist Initial 15 Min Estab Patient [id number] 2018 ANASTACIO PARTIDA [facility] Non-Physician Phone Call To Pt/Provider Intermed (11-20 min) Non-Physician Phone Call To Pt/Provider Intermed (11-20 min) [id number] 2018 CHANDLER SMITH [facility] Non-Physician Phone Call To Patient/Provider Brief (5-10min) Non-Physician Phone Call To Patient/Provider Brief (5-10min) [id number] 2018 CHANDLER SMITH [facility] Non-Physician Phone Call To Patient/Provider Brief (5-10min) Non-Physician Phone Call To Patient/Provider Brief (5-10min) [id number] 2018 CHANDLER SMITH [facility] Knee orthosis, elastic with joints, prefabricated, [id number] 2018 GÓMEZ CORREA [facility] Spectacles Services Fitting Monofocals (Not For Aphakia) [employer] [facility] Fitting Monofocals (Not For Aphakia) [id number] 2018 FUNMI GANDHI [facility] Medication Management By Pharmacist Each Additional 15 Min Medication Management By Pharmacist Each Additional 15 Min [id number] 2018 ANASTACIO PARTIDA [facility] Med Management By Pharmacist Initial 15 Min New Patient Med Management By Pharmacist Initial 15 Min New Patient [id number] 2018 ANASTACIO PARTIDA [facility] Non-Physician Phone Call To Patient/Provider Brief (5-10min) Non-Physician Phone Call To Patient/Provider Brief (5-10min) [id number] 2017 LAWRIE, HAO A DoD Non-Physician Phone Call To Patient/Provider Brief (5-10min) Non-Physician Phone Call To Patient/Provider Brief (5-10min) [id number] 2017 ROJASEMILY PASQUALE NEGRON DoD Non-Physician Phone Call To Patient/Provider Brief (5-10min) Non-Physician Phone Call To Patient/Provider Brief (5-10min) [id number] 2017 ROJASRANJAN PASQUALE NEGRON DoD Non-Physician Phone Call To Patient/Provider Brief (5-10min) Non-Physician Phone Call To Patient/Provider Brief (5-10min) [id number] 2017 HAO AYERS DoD Non-Physician Phone Call To Patient/Provider Brief (5-10min) Non-Physician Phone Call To Patient/Provider Brief (5-10min) [id number] 2017 MONICA ARREOLA DoD Non-Physician Phone Call To Patient/Provider Brief (5-10min) Non-Physician Phone Call To Patient/Provider Brief (5-10min) [id number] 2017 JADA TURNER DoD Non-Physician Phone Call To Patient/Provider Brief (5-10min) Non-Physician Phone Call To Patient/Provider Brief (5-10min) [id number] 2017 HAO AYERS DoD Non-Physician Phone Call To Patient/Provider Brief (5-10min) Non-Physician Phone Call To Patient/Provider Brief (5-10min) [id number] 2017 HAO AYERS DoD [employer] [facility] Fitting Bifocals (Not For Aphakia) [employer] [facility] Fitting Bifocals (Not For Aphakia) [id number] 2017 CYNDIE NORTON DoD Non-Physician Phone Call To Patient/Provider Brief (5-10min) Non-Physician Phone Call To Patient/Provider Brief (5-10min) [id number] 2017 HAO AYERS DoD Non-Physician Phone Call To Patient/Provider Brief (5-10min) Non-Physician Phone Call To Patient/Provider Brief (5-10min) [id number] 2017 HAO AYERS DoD Non-Physician Phone Call To Patient/Provider Brief (5-10min) Non-Physician Phone Call To Patient/Provider Brief (5-10min) [id number] 2016 HAO AYERS [facility] Corticosteroids Injection Intraarticular Left Shoulder Corticosteroids Injection Intraarticular Left Shoulder [id number] 2016 CHRISTOPHE BAIG [facility] Non-Physician Phone Call To Patient/Provider Brief (5-10min) Non-Physician Phone Call To Patient/Provider Brief (5-10min) [id number] 2016 HAO AYERS [facility] Non-Physician Phone Call To Patient/Provider Brief (5-10min) Non-Physician Phone Call To Patient/Provider Brief (5-10min) [id number] 2016 HAO AYERS [facility] Non-Physician Phone Call To Patient/Provider Brief (5-10min) Non-Physician Phone Call To Patient/Provider Brief (5-10min) [id number] 2016 HAO AYERS [facility] Non-Physician Phone Call To Patient/Provider Brief (5-10min) Non-Physician Phone Call To Patient/Provider Brief (5-10min) [id number] 2016 HAO AYERS [facility] Non-Physician Phone Call To Patient/Provider Brief (5-10min) Non-Physician Phone Call To Patient/Provider Brief (5-10min) [id number] 2016 JULIÁN BAEZ [facility] Non-Physician Phone Call To Patient/Provider Brief (5-10min) Non-Physician Phone Call To Patient/Provider Brief (5-10min) [id number] 2016 HAO AYERS [facility] Non-Physician Phone Call To Patient/Provider Brief (5-10min) Non-Physician Phone Call To Patient/Provider Brief (5-10min) [id number] 2016 HAO AYERS [facility] Non-Physician Phone Call To Patient/Provider Brief (5-10min) Non-Physician Phone Call To Patient/Provider Brief (5-10min) [id number] 2016 YOSEF BARRAZA [facility] Non-Physician Phone Call To Patient/Provider Brief (5-10min) Non-Physician Phone Call To Patient/Provider Brief (5-10min) [id number] 2016 HAO AYERS [facility] Non-Physician Phone Call To Patient/Provider Brief (5-10min) Non-Physician Phone Call To Patient/Provider Brief (5-10min) [id number] 2015 HAO AYERS [facility] Non-Physician Phone Call To Patient/Provider Brief (5-10min) Non-Physician Phone Call To Patient/Provider Brief (5-10min) [id number] 2015 HAO AYERS [facility] Non-Physician Phone Call To Patient/Provider Brief (5-10min) Non-Physician Phone Call To Patient/Provider Brief (5-10min) [id number] 2015 HAO AYERS [facility] Non-Physician Phone Call To Patient/Provider Brief (5-10min) Non-Physician Phone Call To Patient/Provider Brief (5-10min) [id number] 2015 HAO AYERS [facility] Non-Physician Phone Call To Patient/Provider Brief (5-10min) Non-Physician Phone Call To Patient/Provider Brief (5-10min) [id number] 2015 HAO AYERS [facility] [employer] Services Fitting Bifocals (Not For Aphakia) [employer] [facility] Fitting Bifocals (Not For Aphakia) [id number] 2014 GETACHEW CUADRA [facility] Determination Of Refractive State Determination Of Refractive State 23069 2014 GETACHEW CUADRA [facility] Ophthalmological Prior Patient Start Comprehensive Care Ophthalmological Prior Patient Start Comprehensive Care [id number] 2014 GETACHEW CUADRA [facility] Non-Physician Phone Call To Patient/Provider Brief (5-10min) Non-Physician Phone Call To Patient/Provider Brief (5-10min) [id number] 2013 HAO AYERS [facility] Non-Physician Phone Call To Patient/Provider Brief (5-10min) Non-Physician Phone Call To Patient/Provider Brief (5-10min) [id number] 2013 MAXIM KUHN [facility] Non-Physician Phone Call To Patient/Provider Brief (5-10min) Non-Physician Phone Call To Patient/Provider Brief (5-10min) [id number] 2013 MAXIM KUHN [facility] Arthrocentesis Aspiration Of Bursa Of Elbow Arthrocentesis Aspiration Of [place]urs[place]bow [id number] 2013 CHRISTOPHE BAIG [facility] Non-Physician Phone Call To Patient/Provider Brief (5-10min) Non-Physician Phone Call To Patient/Provider Brief (5-10min) [id number] 2013 MARVA HOFF [facility] Non-Physician Phone Call To Patient/Provider Brief (5-10min) Non-Physician Phone Call To Patient/Provider Brief (5-10min) [id number] 2013 MARVA PARISH [facility] Non-Physician Phone Call To Patient/Provider Brief (5-10min) Non-Physician Phone Call To Patient/Provider Brief (5-10min) [id number] 2013 HAO AYERS [facility] Non-Physician Phone Call To Pt/Provider Lengthy (21-30 min) Non-Physician Phone Call To Pt/Provider Lengthy (21-30 min) [id number] 2013 DEX MCCORD [facility] Non-Physician Phone Call To Patient/Provider Brief (5-10min) Non-Physician Phone Call To Patient/Provider Brief (5-10min) [id number] 2012 MAXIM KUHN Non-Physician Phone Call To Patient/Provider Brief (5-10min) Non-Physician Phone Call To Patient/Provider Brief (5-10min) [id number] 2012 MAXIM KUHN Medication Management By Pharmacist Each Additional 15 Min Medication Management By Pharmacist Each Additional 15 Min [id number] 2012 KANDI GOLDBERG Med Management By Pharmacist Initial 15 Min New Patient Med Management By Pharmacist Initial 15 Min New Patient [id number] 2012 KANDI GOLDBERG Destruct Of Premalignant Lesion By Any Method 2nd Through 14 2011 HUMBERTO BOJORQUEZ Destruction Of Premalignant Lesion By Any Method One Lesion 2011 HUMBERTO BOJORQUEZ Biopsy Skin Biopsy Skin 34838 2011 HUMBERTO BOJORQUEZ Medication Management By Pharmacist Each Additional 15 Min Medication Management By Pharmacist Each Additional 15 Min [id number] 2011 SHELDON REYES Med Management By Pharmacist Initial 15 Min Estab Patient Med Management By Pharmacist Initial 15 Min Estab Patient [id number] 2011 SHELDON REYES [employer] Fitting Bifocals (Not For Aphakia) [employer] [facility] Fitting Bifocals (Not For Aphakia) 68289 2011 MASON GLOVER Determination Of Refractive State Determination Of Refractive State 40733 2011 MASON GLOVER [facility] Diabetic indicator; retinal eye exam, dilated, bilateral 2011 MASON GLOVER Ophthalmological Prior Patient Start Comprehensive Care Ophthalmological Prior Patient Start Comprehensive Care [id number] 2011 MASON GLOVER Medication Management By Pharmacist Each Additional 15 Min Medication Management By Pharmacist Each Additional 15 Min [id number] 2011 SHELDON REYES Med Management By Pharmacist Initial 15 Min New Patient Med Management By Pharmacist Initial 15 Min New Patient [id number] 2011 SHELDON REYES Non-Physician Phone Call To Pt/Provider Lengthy (21-30 min) Non-Physician Phone Call To Pt/Provider Lengthy (21-30 min) 84208 2011 ROCIO BAIG [facility] Cerumen Removal Left Ear Suction 2009 CATHERINE ALFREDO Cerumen Removal Right Ear Suction 2009 CATHERINE LAFREDO Medical Nutrition Therapy Initial A e ment, Intervention Medical Nutrition Therapy Initial Assessment, Intervention [id number] 2009 FAHEEM WILLIS [facility] Diabetic indicator; retinal eye exam, dilated, bilateral 2009 HAMILTON PARISH [facility] Determination Of Refractive State Determination Of Refractive State 35271 2009 [place] PARISH Ophthalmological New Patient Start Comprehensive Care Ophthalmological New Patient Start Comprehensive Care [id number] 2009 [place] PAR[place] Cerumen Removal Left Ear Suction 2008 CATHERINE ALFREDO Cerumen Removal Right Ear Suction 2008 CATHERINE ALFREDO [facility] Influenza Split Virus Vaccine Age 3+ Years Intramuscular 2007 RONIT YOUNG [facility] Cardiac Stre Test, Phys. Supervision, Interp. And Report Cardiac Stress Test, Phys. Supervision, Interp. And Report [id number] 2007 TONY SNYDER [facility] ECG Performance of Tracing Only ECG Performance of Tracing Only [id number] 2007 MAURICIO ROSE Cerumen Removal Right Ear Suction 2006 CATHERINE ALFREDO Hearing Aid Check Hearing Aid Check 40873 01/02 CATHERINE ALFREDO Cerumen Removal Left Ear Suction 2006 CATHERINE ALFREDO Cerumen Removal Right Ear Suction 2006 CATHERINE ALFREDO Hearing Aid Examination and Selection - Binaural Hearing Aid Examination and Selection - Binaural 03652 2006 CATHERINE ALFREDO [facility] Training And Self-Care Skills Training And Self-Care Skills 48043 2006 CATHERINE ALFREDO Electroacoustic Evaluation For Hearing Aid - Binaural Electroacoustic Evaluation For Hearing Aid - Binaural 41506 2006 CATHERINE ALFREDO Comprehensive Audiometry Comprehensive Audiometry 07097 2006 CATHERINE ALFREDO Audiologic Impedance Testing Audiologic Impedance Testing 91253 2006 CATHERINE ALFREDO Acoustic Reflex Testing 2006 CATHERINE ALFREDO Acoustic Reflex Decay Test Acoustic Reflex Decay Test 09424 2006 CATHERINE ALFREDO Hearing Aid Examination and Selection - Binaural Hearing Aid Examination and Selection - Binaural 02004 2006 CATHERINE ALFREDO Cerumen Removal Left Ear Suction 2006 CATHERINE ALFREDO Cerumen Removal Right Ear Suction 2006 CATHERINE ALFREDO Cerumen Removal Right Ear 2005 SERGEI BAIG Td Vaccine Seven Years Of Age And Above Td Vaccine Seven Years Of Age And Above 77701 2004 MASON MACIAS [facility] Immunization Administration One Vaccine Immunization Administration One Vaccine 53264 2004 MASON MACIAS [facility] Cerumen Removal 2004 SERGEI BAIG Med Management By Pharmacist Initial 15 Min Estab Patient Med Management By Pharmacist Initial 15 Min Estab Patient [id number] ANASTACIO PARTIDA [facility] Medication Management By Pharmacist Each Additional 15 Min Medication Management By Pharmacist Each Additional 15 Min [id number] ANASTACIO PARTIDA [facility] Fitting Monofocals (Not For Aphakia) [facility] Fitting Monofocals (Not For Aphakia) [id number] [place] [place] [facility] Social History Combined list of available smoking, tobacco, and other social history from 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 Social History Type Response Date Comment [facility] e Sex Representation Male (finding) 06/20/2022 Un known Organization Sexual Orientation Ambula tory Pharmacy Gender identity Ambulator y Pharmacy This section is an empty social history section. [facility] Assessment and Plan Combined list of future care activities from Department of Defense and Veterans Affairs facilities (e.g., assessment and plan notes, appointments, orders, and referrals). Additional future care activities may be listed in the Plan of Care section. Result Assessment and Plan Date Source Assessment and Plan No data available for this section 11/08/2024 Ambulatory Pharmacy Functional Status Combined list of recent functional and cognitive assessments recorded at [facility] and [facility] Functional [place] Measurement (FIM) Scale: 1 = Total Assistance (Subject = 0% +), 2 = Maximal Assistance (Subject = 25% +), 3 = Moderate Assistance (Subject = 50% +), 4 = Minimal Assistance (Subject = 75% +), 5 = Supervision, 6 = Modified [place] (Device), 7 = Complete [place] (Timely, Safely). Assessment Date/Time Source Assessment Type Assessment Skill Assessment Score Assessment Details No data available for this section
--- OUTSIDE RECORDS SUMMARY | 2024-11-08 11:10 | XMS_ITS | Clinical Summary ---
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 Active rOPINIRole (REQUIP) 1 mg tablet Take 1 mg by mouth daily. Active felodipine (PLENDIL) 10 mg Extended Release 24 hour tablet Take 5 mg by mouth daily. Active HYDROcodone-aceta minophen (NORCO) 7.5-325 mg Tablet Take 1 Tablet by mouth every 4 hours as needed for Pain, Moderate. Active isosorbide dinitrate (ISORDIL) 30 mg Tablet Take 30 mg by mouth. Active aspirin (ECOTRIN EC) 81 mg Tablet, Delayed Release (E.C.) Take 81 mg by mouth daily. Active multivit-min/foli c/vit K/lycop (ONE-A-DAY MEN'S MULTIVITAMIN ORAL) Take by mouth. Active docusate sodium (COLACE) 50 mg/5 mL solution Take 50 mg by mouth 2 times daily. Active omega-3 fatty acids-fish oil 300-1,000 mg Capsule Take by mouth daily. Active Active Problems No known active problems Encounters Date Type Department Care Team Description 11/01/2024 Orders Only [facility] - [place] [address] [place] [address] Ferdinand Antonio MD Erythrocytosis 10/18/2024 Orders Only [facility] - [place] [address] [place] [address] Ferdinand Antonio MD Erythrocytosis 10/12/2024 External Device Data [facility] ABSTRACTION Provider, Abstract 10/04/2024 Orders Only [facility] - [place] [address] [place] [address] Ferdinand Antonio MD Erythrocytosis 09/21/2024 External Device Data [facility] ABSTRACTION Provider, Abstract 09/20/2024 Orders Only [facility] - [place] [address] [place] [address] Ferdinand Antonio MD Erythrocytosis 09/16/2024 External Device Data [facility] ABSTRACTION Provider, Abstract 09/15/2024 External Device Data [facility] ABSTRACTION Provider, Abstract 09/14/2024 External Device Data [facility] ABSTRACTION Provider, Abstract 09/06/2024 Orders Only [facility] - [place] [address] [place] [address] Ferdinand Antonio MD Erythrocytosis 08/23/2024 Orders Only [facility] - [place] [address] [place] [address] Ferdinand Antonio MD Erythrocytosis 08/10/2024 External Device Data [facility] ABSTRACTION Provider, Abstract 08/10/2024 External Device Data [facility] ABSTRACTION Provider, Abstract 08/10/2024 External Device Data [facility] ABSTRACTION Provider, Abstract 08/09/2024 Orders Only [facility] - [place] [address] [place] [address] Ferdinand Antonio MD Erythrocytosis from Last 3 Months Family History Medical History Relation Name Comments No Known Problems Brother No Known Problems Child 1 No Known Problems Child 2 No Known Problems Father Heart Surgery Mother pig valve No Known Problems Sister 1 No Known Problems Sister 2 Relation Name Status Comments Brother Alive Child 1 Alive Child 2 Alive Father Mother Alive Sister 1 Alive Sister 2 Alive Social History Tobacco Use Types Packs/Day Years Used Date Smoking Tobacco: Former Cigarettes 1 30 0 09/29/1986 - 09/29/2016 Tobacco Cessation:Counseling Given: Not Answered Alcohol Use Standard Drinks/Week Comments Yes 3 (1 standard drink = 0.6 oz pur e alcohol) Everyday Sex and Gender Information Value Date Recorded Sex Assigned at Not on file Legal Sex Male 10:23 AM CDT Gender Identity Not on file Sexual Orientation Not on file Last Filed Vital Signs Vital Sign Reading Time Taken Comments Blood Pressure 95/60 04/12/2024 11:38 AM 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 Pulse 81 04/12/2024 11:38 AM 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 Temperature 36.8 C (98.2 F) 04/12/2024 11:38 AM 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 Respiratory Rate 15 04/12/2024 11:38 AM 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 Oxygen Saturation 95% 04/12/2024 11:38 AM 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 Inhaled Oxygen Concentration - - Weight 87.3 kg (192 lb 6.4 oz) 04/12/2024 11:38 AM 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 Height 188 cm (6' 2) 09/30/2023 1:24 PM CDT Body Mass Index 24.7 09/30/2023 1:24 PM CDT Plan of Treatment Upcoming Encounters Date Type Department Care Team (Late st Contact Info) Description 11/08/2024 11:30 AM CDT Office Visit [facility] - [place] [address] [facility] [address] [place] [address] Ferdinand Antonio MD [address] [facility] [address] [place] [address] Health Maintenance Due Date Last Done Comments DIABETES ANNUAL FOOT EXAM 1972 DIABETES MICROALBUMIN ANNUAL SCREEN 1972 LDL CHOLESTEROL ANNUAL 1972 FIT-DNA Q 3 years 08/25/1999 FIT/FOBT Q 1 year 08/25/1999 Flex Sig/CT Colonography Q 5 years 08/25/1999 Lung Cancer Screening 2004 Abdominal Aortic Aneurysm (A AA) Screening 08/25/2019 DTAP/TDAP/TD VACCINES (2 - T d or Tdap) 12/29/2022 12/29/2012 COVID-19 Vaccine (9 - 2023-2 5 season) 2024 12/28/2023, 07/05/2023, 01/18/2023, Additional history exists DIABETES ANNUAL RETINAL EXAM 02/29/202406/2022, 02/25/2022, 09/15/2020, Additional history exists DIABETES HBA1C Q 6 MONTHS 09/27/20242023, 12/22/2023, 09/16/2023, Additional history exists INFLUENZA VACCINE (#1) 2024 , 12/23/2019, 01/04/2019, Additional history exists RSV VACCINE (60+ or ) (1 - 1-dose 75+ series) 2029 COLORECTAL SCREENING 10/06/2033 10/07/2023, 12/19/19 13 Colorectal Cancer Screening 10/06/2033 ZOSTER VACCINE Completed 11/09/2018, 07/27, 12/23/2013 PNEUMOCOCCAL VACCINE 50+ YEARS Completed 12/28/2023 , 09/07/2019 Insurance MEDICARE PART A AND B [employer]
[2024-11-08 11:15] LABS: Hematocrit 50.4 % (42.0-52.0); Hemoglobin 17.4 g/dL (14.0-18.0); Immature Granulocyte Percent A 0.3 % (0-0.5); Lymphocytes Absolute Auto 1.73 K/mm3 (0.9-3.2); Mean Corpuscular HGB Conc 34.5 g/dl (32-36); Mean Corpuscular Hemoglobin 32.5 pg (26-34); Mean Corpuscular Volume 94.0 fl (80-100); Nucleated Red Blood Cells Absolute Auto 0.000 K/mm3 (0.0-0.012); Nucleated Red Blood Cells Perc 0.0 % (0.0-0.2); Platelet Count Result 176 k/mm3 (150-375); Red Blood Count 5.36 M/mm3 (4.6-6.20); White Blood Count 9.5 K/mm3 (4.5-10.0)
== END 2024-11-08 11:02 | disposition home or self-care (01) ==
PROVIDERS: PCP Family Medicine; Visit Provider Internal Medicine Hematology & Oncology
DX: D75.1 Secondary polycythemia (principal)
CPT/HCPCS: 36415; 85025